=== PATIENT | female | born 1950 | race Caucasian/White ===

== ENCOUNTER 2017-04-20 20:37 | Inpatient (IN) | payer OTHER ==
[~2017-04-20] VITALS: Ht 167.6 cm; Wt 84.9 kg
[2017-04-20 21:24] LABS: HEMATOCRIT 36.2 % (37-47); MEAN CORPUSCULAR HEMOGLOBIN 32.1 pg (25-34); MEAN CORPUSCULAR HGB CONC 35.6 g/dl (32-36); MEAN PLATELET VOLUME 10.3 fL (7.4-10.4); PLATELET COUNT 379 K/uL (130-400); RED BLOOD COUNT 4.02 M/uL (4.2-5.4)
--- NOTE | 2017-04-20 21:25 | DIAGNOSTIC IMAGING REPORT ---
SINGLE VIEW CHEST CLINICAL HISTORY: Atypical chest pain. FINDINGS: An AP, portable, upright chest radiograph is obtained. No prior studies are available for comparison at the time of dictation. The examination is degraded by portable technique and patient rotation. The cardiomediastinal silhouette is unremarkable. The lungs and pleural spaces are clear. No pneumothorax is seen. The skeletal structures are osteopenic. The bony thorax is grossly intact. IMPRESSION: No acute cardiopulmonary abnormality. Electronically signed by: Chele Mar M.D. 04/20/2017 9:24 PM Dictated Date/Time: 04/20/2017 9:23 PM
[2017-04-20 21:30] LABS: POINT OF CARE TROPONIN I < 0.030 ng/ml (0-0.045)
[2017-04-20 21:37] LABS: PARTIAL THROMBOPLASTIN RATIO 0.9; PROTHROMBIN TIME (PATIENT) 11.1 SECONDS (9.0-12.0)
[2017-04-20 21:39] LABS: BUN/CREATININE RATIO 24.8 (10-20); CALCIUM 9.3 mg/dl (8.5-10.1); CREATININE 0.88 mg/dl (0.60-1.20); POTASSIUM 3.5 mmol/L (3.5-5.1)
[2017-04-20 21:44] LABS: ALB/GLOB RATIO 1.3 (0.9-2); CKMB/CK RATIO 1.9 (0-3.0)
[2017-04-20] MEDS ORDERED: NITROGLYCERIN OINT 2% 1GM PACKET EXT STA (22:13)
[2017-04-20] MEDS ORDERED: NITROGLYCERIN OINT 2% 1GM PACKET ONE (22:28)
[2017-04-20] MEDS ORDERED: LOSA1TAB PO (22:33)
[2017-04-20] MEDS ORDERED: ASPI81TA28 PO (22:33)
[2017-04-20] MEDS ORDERED: LEVO137T3 PO (22:33)
[2017-04-20] MEDS ORDERED: NITROGLYCERIN OINT 2% 1GM PACKET EXT SCH (23:00)
[2017-04-20] MEDS ORDERED: NITROGLYCERIN 0.4 MG SL PER TAB CHARGE SL PRN (23:00)
[2017-04-20] MEDS ORDERED: ACETAMINOPHEN 325 MG TAB PO PRN (23:00)
[2017-04-20] MEDS ORDERED: MoRPHine SULFATE 2 MG/ML CARP IV PRN (23:00)
--- NOTE | 2017-04-20 23:17 | History and Physical ---
History & Physical Date & Time of Service: Apr 20, 2017 at 23:02 Chief Complaint: Chest Pain Primary Care Physician: No Doctor, Assigned History of Present Illness Source: patient, family Kiara is a 66 yo F with fibromuscular dysplasia, hypertension, and angina who presents with severe chest pain 3 hours ago. She reports this has been occurring frequently over the last two months, but was at its worst today. Around 8pm, she was shopping in [employer], and once she got to check out, she developed sudden onset, left sided chest pain. She reports she felt she had to sit down, and became very limp in her daughters arms. She took a nitro tablet and it did not do anything, so took another one, and then her daughter called the ambulance. She does not remember much else. Since receiving nitroglycerin, she has not had further chest pain. She reports she has had recurrent angina over the last two months. She reports it usually occurs with activity and occasionally radiates to the jaw, but resolves with nitro. It most recently occurred yesterday when she was shopping in [place] with a friend, who took her to the ED there. She was told her nitro had / would not work since it was out of the refrigerator for too long, and once she had nitro there she felt fine and was discharged home. She has recently switched to [facility] insurance and lives in [place], where her PCP does not take her insurance, so she has not seen any physicians. She reports she had a heart cath years ago, but has not had any stents placed. Her Blasting Coal Miner used to be named Dr Whatley. She also had renal artery issues due to fibromuscular dysplasia and reports she has abnormal cells in the renal artery which caused high blood pressure, but reports she did not have renal artery stenosis. She reports she has yearly ultrasounds of all her arteries, most recently last year, and this was normal. Past Medical/Surgical History PMHx: Fibromuscular dysplasia Angina Hypertension PSHx: None Family History Both parents had CAD, Father in his 50's from an [place] Social History Smoking Status: Former Smoker Alcohol Use: socially Drug Use: none Marital Status: Housing status: lives with family Occupational Status: retired Allergies Coded Allergies: No Known Allergies (Unverified , 04/20/17) Home Medications Scheduled Aspirin (Aspirin Ec), 81 MG PO DAILY Levothyroxine Sodium (Levothyroxine Sodium), 1 TAB PO DAILY Losartan Potassium (Cozaar), Unknown Dose PO DAILY Review of Systems A 10 point ROS was negative unless otherwise noted in HPI. Physical Exam Vital Signs Date Time Temp Pulse Resp B/P (MAP) Pulse Ox O2 Delivery O2 Flow Rate FiO2 04/20/17 22:37 73 23 84 04/20/17 22:22 67 13 96 04/20/17 22:07 60 12 95 04/20/17 22:05 64 18 129/65 94 Room Air 04/20/17 22:04 129/65 04/20/17 21:52 63 19 98 04/20/17 21:37 73 16 95 04/20/17 21:22 68 16 94 04/20/17 21:07 69 14 96 04/20/17 20:52 71 14 97 04/20/17 20:47 72 04/20/17 20:44 123/76 04/20/17 20:43 93 Room Air 04/20/17 20:43 36.8 72 20 123/76 93 Room Air 04/20/17 20:43 96 Room Air General Appearance: WD/WN, no apparent distress Head: normocephalic, atraumatic Eyes: normal inspection, PERRL ENT: hearing grossly normal Neck: supple, no JVD Respiratory/Chest: lungs clear, normal breath sounds, no respiratory distress Cardiovascular: regular rate, rhythm, no murmur, normal peripheral pulses Abdomen/GI: normal bowel sounds, non tender, soft Back: no CVA tenderness Extremities/Musculoskelatal: no calf tenderness, no pedal edema Neurologic/Psych: alert, normal mood/affect, normal reflexes, oriented x 3 Skin: no rash Diagnostics Laboratory Results Results Past 24 Hours Test 04/20/17 20:32 04/20/17 21:11 Range/Units White Blood Count 6.40 4.8-10.8 K/uL Red Blood Count 4.02 4.2-5.4 M/uL Hemoglobin 12.9 12.0-16.0 g/dL Hematocrit 36.2 37-47 % Mean Corpuscular Volume 90.0 80-100 fL Mean Corpuscular Hemoglobin 32.1 25-34 pg Mean Corpuscular Hemoglobin Concent 35.6 32-36 g/dl RDW Standard Deviation 41.6 36.4-46.3 fL RDW Coefficient of Variation 12.7 11.5-14.5 % Platelet Count 379 130-400 K/uL Mean Platelet Volume 10.3 7.4-10.4 fL Prothrombin Time 11.1 9.0-12.0 SECONDS Prothromb Time International Ratio 1.0 0.9-1.1 Activated Partial Thromboplast Time 24.5 21.0-31.0 SECONDS Partial Thromboplastin Ratio 0.9 Sodium Level 139 136-145 mmol/L Potassium Level 3.5 3.5-5.1 mmol/L Chloride Level 106 98-107 mmol/L Carbon Dioxide Level 22 21-32 mmol/L Anion Gap 11.0 3-11 mmol/L Blood Urea Nitrogen 22 7-18 mg/dl Creatinine 0.88 0.60-1.20 mg/dl Est Creatinine Clear Calc Drug Dose 70.8 ml/min Estimated GFR () 80.5 Estimated GFR (Non- 69.4 BUN/Creatinine Ratio 24.8 10-20 Random Glucose 110 70-99 mg/dl Calcium Level 9.3 8.5-10.1 mg/dl Total Bilirubin 0.4 0.2-1 mg/dl Aspartate Amino Transf (AST/SGOT) 14 15-37 U/L Alanine Aminotransferase (ALT/SGPT) 23 12-78 U/L Alkaline Phosphatase 97 45-117 U/L Total Creatine Kinase 98 26-192 U/L Creatine Kinase MB 1.9 0.5-3.6 ng/ml Creatine Kinase MB Ratio 1.9 0-3.0 Total Protein 7.0 6.4-8.2 gm/dl Albumin 3.9 3.4-5.0 gm/dl Globulin 3.1 2.5-4.0 gm/dl Albumin/Globulin Ratio 1.3 0.9-2 Bedside D-Dimer 385 0-450 ng/mlFEU Bedside Troponin I < 0.030 0-0.045 ng/ml Diagnostic Radiology SINGLE VIEW CHEST CLINICAL HISTORY: Atypical chest pain. FINDINGS: An AP, portable, upright chest radiograph is obtained. No prior studies are available for comparison at the time of dictation. The examination is degraded by portable technique and patient rotation. The cardiomediastinal silhouette is unremarkable. The lungs and pleural spaces are clear. No pneumothorax is seen. The skeletal structures are osteopenic. The bony thorax is grossly intact. IMPRESSION: No acute cardiopulmonary abnormality. EKG NSR, No ST elevations Impression Assessment and Plan 66 yo F with chest pain, but negative EKG and negative troponin - could be spastic / vasospasm, she reports a normal cath from Cardiology Chest pain - Monitor on telemetry - Trend cardiac enzymes - Continue aspirin - Cardiology consult - Echo in AM HTN - Continue Losartan Fibromuscular Dysplasia - Continue aspirin DC planning CODE STATUS: FULL VTE: Heparin DISPO: TELE Resident Physician Supervision Note: Pt seen/examined independently. I discussed the case with the resident and agree with the findings and plan as documented in the note. Any exceptions or clarifications are listed here: 66 y/o F Hx fibrodysplasia and coronary vasospastic disease presenting with severe CP leading to near-syncope and diaphoresis. It is not uncommon for her to have CP however she states that her pain was far worse than usual. She apparently had a clean cardiac cath 5 years ago. OE AAO x 3 S1,2 R CTAB NT. ND, BS+ No CCE P: NTG patch applied -trend troponins - consult [facility] cardiology as she was previously following with Dr Dawson EKG/enzymes thus far do not support ischemia Above discussed with pt and resident Documented By: Marc Jarrell Level of Care Telemetry Resuscitation Status FULL RESUSCITATION VTE Prophylaxis Given or contraindicated: Other Anticoagulation Resident Tracking Resident Involvement: Resident Care Provided Care Provided: Adult Hospital Medicine
[2017-04-21] VITALS (7 sets, daily range): BP systolic 99–139; BP diastolic 59–78; PULSE 55–83; TEMP 36.3–36.9; O2SAT 94–97; Ht 167.6 cm; Wt 84.9 kg
[2017-04-21] MEDS ORDERED: NITROGLYCERIN 0.4 MG SL PER TAB CHARGE SL PRN (00:15)
[2017-04-21] MEDS ORDERED: MoRPHine SULFATE 2 MG/ML CARP IV PRN (00:15)
--- NOTE | 2017-04-21 01:24 | EMERGENCY ROOM VISIT NOTE ---
History Report prepared by Jeff: Destiney Ford Under the Supervision of: Dr. Jairo Hurt M.D. First contact with patient: 21:17 Chief Complaint: CHEST PAIN Stated Complaint: CHEST PAIN Nursing Triage Summary: Was shopping with daughter, had acute onset of chest pain at 2000 hours, felt like pressure under left breast, got worse, took 3 nitro and eventually got relief upon arrival of EMS. EMS did not give further medication. Daughter states it seemed like patient was "seizing" when receiving nitro, stating eyes open but wasn't really looking at anything. EMS reports pt was diaphoretic upon arrival and dried up en route. Two road trips to [place] and back in past month. Has had episodes recently like she feels like she can't get enough air. Also took 2 nitro yesterday for the same chest pains. Pt did not take ASA or given ASA by EMS en route, did take a 81 mg ASA this morning. History of Present Illness The patient is a 66 year old female who presents to the Emergency Room with complaints of persistent chest pain starting 1999 today. She presents to the ED by EMS. Today at 1999 she started having pain in her left upper chest which radiated to her left rib cage. She describes it as being like a vice mat repairer. Her current chest pain is worse than her previous episodes. She took 3 nitro which somewhat improved her pain, but not completely. She reports diaphoresis. She has had dyspnea on exertion and fatigue for the past several days. She denies any abdominal pain. The patient has had several episodes of chest pain in the past month. 2-3 weeks ago she had some chest pain which resolved with nitro. Yesterday, she had another episode accompanied by diaphoresis, fatigue, and headache. She took nitro which resolved her pain. She went on a road trip to [place] 1 week ago. She has a family history of CO. Her father had an CO at age 44 and her mother in her 60s. The patient is on baby aspirin. She had a cardiac catheterization around 5 years ago which was negative. Source of History: patient Onset: 1999 Position: chest Quality: other (vice mat repairer) Timing: other (persistent) Modifying Factors (Relieving): other (nitro) Associated Symptoms: + diaphoresis, + fatigue, No abdominal pain Note: Pt reports dyspnea on exertion. Review of Systems See HPI for pertinent positives & negatives. A total of 10 systems reviewed and were otherwise negative. Past Medical & Surgical Medical Problems: (1) Chest pain (2) Unstable angina Family History Heart attack Social History Smoking Status: Former Smoker Marital Status: Occupation Status: unemployed Current/Historical Medications Scheduled Amlodipine (Norvasc), 2.5 MG PO DAILY Aspirin (Aspirin Ec), 81 MG PO DAILY Levothyroxine Sodium (Levothyroxine Sodium), 1 TAB PO DAILY Scheduled PRN Nitroglycerin (Nitrostat), 0.4 MG SL q5min PRN for Chest Pain Allergies Coded Allergies: No Known Allergies (Unverified , 04/20/17) Physical Exam Vital Signs Date Time Temp Pulse Resp B/P (MAP) Pulse Ox O2 Delivery O2 Flow Rate FiO2 04/20/17 22:37 73 23 84 04/20/17 22:22 67 13 96 04/20/17 22:07 60 12 95 04/20/17 22:05 64 18 129/65 94 Room Air 04/20/17 22:04 129/65 04/20/17 21:52 63 19 98 04/20/17 21:37 73 16 95 04/20/17 21:22 68 16 94 04/20/17 21:07 69 14 96 04/20/17 20:52 71 14 97 04/20/17 20:47 72 04/20/17 20:44 123/76 04/20/17 20:43 93 Room Air 04/20/17 20:43 36.8 72 20 123/76 93 Room Air 04/20/17 20:43 96 Room Air Physical Exam GENERAL: Patient is a healthy-appearing well-nourished female HEAD: Normocephalic atraumatic EYES: Ocular movements intact pupils equal and react to light OROPHARYNX mucous membranes are moist no exudates present no erythema or edema present NECK: Supple no nuchal rigidity CHEST: Good equal expansion LUNGS: Clear and equal to auscultation CARDIAC: Normal S1 and S2 ABDOMEN: Soft nontender no guarding BACK: No CVA tenderness EXTREMITIES: No pain upon palpation normal muscle strength in all groups no clubbing cyanosis or edema NEURO: Patient is following commands and answering questions appropriately. Alert and oriented x3 Cranial Nerves 2-12 grossly intact Medical Decision & Procedures ER Provider Diagnostic Interpretation: X-ray results as stated below per interpretation by me and the radiologist: SINGLE VIEW CHEST CLINICAL HISTORY: Atypical chest pain. FINDINGS: An AP, portable, upright chest radiograph is obtained. No prior studies are available for comparison at the time of dictation. The examination is degraded by portable technique and patient rotation. The cardiomediastinal silhouette is unremarkable. The lungs and pleural spaces are clear. No pneumothorax is seen. The skeletal structures are osteopenic. The bony thorax is grossly intact. IMPRESSION: No acute cardiopulmonary abnormality. Electronically signed by: Chele Mar M.D. 04/20/2017 9:24 PM Dictated Date/Time: 04/20/2017 9:23 PM Laboratory Results Test 04/20/17 20:32 04/20/17 21:11 Total Creatine Kinase 98 U/L (26-192) Creatine Kinase MB 1.9 ng/ml (0.5-3.6) Creatine Kinase MB Ratio 1.9 (0-3.0) Bedside D-Dimer 385 ng/mlFEU (0-450) Bedside Troponin I < 0.030 ng/ml (0-0.045) Labs reviewed by ED physician. Medications Administered Medications (Trade) Dose Ordered Sig/Marlyn Route Start Time Stop Time Status Last Admin Dose Admin Nitroglycerin (Nitroglycerin 2% Oint) 1 inch NOW STAT EXT 04/20/17 22:13 04/20/17 22:15 DC 04/20/17 22:30 1 INCH ECG Indication: chest pain Rate (beats per minute): 70 Rhythm: normal sinus Findings: no acute ischemic change, no ectopy ED Course 2153: The student evaluated the patient at this time. We discussed findings, differentials, and treatment plan. 2218: Past medical records reviewed. The patient was evaluated in room C6. A complete history and physical examination was performed. 2213: Nitroglycerin 1 inch EXT. 2240: I discussed the patient's case with Dr. Jarrell, [facility] hospitalist service, he has agreed to evaluate the patient for further management and care. 2245: Upon reexamination the patient is resting comfortably. I discussed results and treatment plan with the patient. She verbalizes agreement and understanding. The patient will be evaluated for further management. Medical Decision Prior records/ancillary studies reviewed. Triage Nursing notes reviewed. Additional history obtained from family. The patient's history was concerning for chest pain. Differential diagnosis: Etiologies such as cardiac ischemia, aortic dissection, pulmonary embolism, pneumonia, pneumothorax, musculoskeletal, infections, pericarditis, myocarditis , esophageal rupture, gastrointestinal, as well as others were entertained. Medication Reconciliation: I attest that I have personally reviewed the patient' s current medication list Blood Pressure Screening: Patient was found to have normal blood pressure on screening and does not require follow up. This is a 66-year-old female who presents emergency department complaining of chest pain. The patient has had increasing amounts of angina for the past month has had increasing amounts of nitroglycerin to take the pain away. Tonight the patient took 3 nitros with no relief of her pain. She was placed on Nitropaste in the emergency department which took the pain away. I did discuss the case with the hospitalist service who agreed to admit the patient. Patient family were in agreement with the treatment plan. Consults Time Called: [phone] Consulting Physician: Dr. Jarrell [facility] hospitalist service Returned Call: [phone] I discussed the patient's case with him, he has agreed to evaluate the patient for further management and care. Impression Primary Impression: Precordial chest pain Scribe Attestation The scribe's documentation has been prepared under my direction and personally reviewed by me in its entirety. I confirm that the note above accurately reflects all work, treatment, procedures, and medical decision making performed by me. Departure Information Dispostion Being Evaluated By Hospitalist Prescriptions Nitroglycerin (Nitrostat) 0.4 Mg/1 Tab Subl 0.4 MG SL q5min Y for Chest Pain, #1 BTL 0 Refills max 3 tablets in 15 minutes Prov: Jass Castle MD 04/21/17 Amlodipine (Norvasc) 2.5 Mg Tab 2.5 MG PO DAILY, #30 TAB 5 Refills Prov: Jass Castle MD 04/21/17 Referrals No Doctor, Assigned (PCP) Patient Instructions My [facility]
[2017-04-21] MEDS: ACETAMINOPHEN 325 MG TAB PO PRN ×2 (05:37→11:23)
[2017-04-21] MEDS: LEVOTHYROXINE 137 MCG TAB PO SCH (05:37)
[2017-04-21] MEDS: NITROGLYCERIN OINT 2% 1GM PACKET EXT SCH ×3 (05:37→18:00)
[2017-04-21 07:21] LABS: BASO % 0.4 %; BASO ABS # 0.02 K/uL (0-0.2); COMPLETE YES; EOS % 3.1 %; HEMATOCRIT 35.8 % (37-47); IG% 0.2 %; LYMPH % 34.7 %; MEAN CELL VOLUME 91.8 fL (80-100); MEAN CORPUSCULAR HEMOGLOBIN 31.8 pg (25-34); MEAN CORPUSCULAR HGB CONC 34.6 g/dl (32-36); MEAN PLATELET VOLUME 10.5 fL (7.4-10.4); NEUT % 52.6 %; PLATELET COUNT 329 K/uL (130-400)
[2017-04-21 07:51] LABS: ALT/SGPT 22 U/L (12-78); BLOOD UREA NITROGEN 18 mg/dl (7-18); BUN/CREATININE RATIO 27.1 (10-20); CALCIUM 8.9 mg/dl (8.5-10.1); CARBON DIOXIDE 24 mmol/L (21-32); CHLORIDE 107 mmol/L (98-107); CHOLESTEROL 219 mg/dl (0-200); CREATININE 0.65 mg/dl (0.60-1.20); GLUCOSE 88 mg/dl (70-99); POTASSIUM 3.6 mmol/L (3.5-5.1); SODIUM 140 mmol/L (136-145); TRIGLYCERIDES 79 mg/dl (0-150); VERY LOW DENSITY LIPOPROT CALC 16 mg/dl
[2017-04-21 07:56] LABS: ALB/GLOB RATIO 1.3 (0.9-2); ALKALINE PHOSPHATASE 90 U/L (45-117); AST/SGOT 14 U/L (15-37); CHOLESTEROL/HDL RATIO 2.9; HDL CHOLESTEROL 76 mg/dl; LDL CHOLESTEROL CALCULATED 127 mg/dl
[2017-04-21] MEDS: ASPIRIN 81 MG ECTAB PO SCH (08:08)
[2017-04-21 08:52] LABS: INR 1.1 (0.9-1.1); PROTHROMBIN TIME (PATIENT) 11.4 SECONDS (9.0-12.0)
[2017-04-21] MEDS ORDERED: LOSARTAN POTASSIUM 25 MG TAB PO SCH (09:00)
--- NOTE | 2017-04-21 11:33 | Cardiology Consultation ---
Cardiology Consultation Date of Consultation: Apr 21, 2017. Requesting Physician: Eugenie Kate Attending Physician: Gopi kelly Reason for Consultation: CP and angina Pt evaluation today including: conversation w/ patient, chart review, lab review, review of studies, conversation w/ senior clinical consultant History of Present Illness CP and Chest pressure worse over last couple months. The patient carries a diagnosis of basal spastic angina. She describes over the last couple of months increased frequency of her symptoms. They do not appear to occur with activity. Yesterday she was walking in [place] and had an episode of angina. She describes it as central chest pressure with this episode slightly taking her breath away. She took a sublingual nitroglycerin and became lightheaded, dizzy, weak, and had tunnel vision. At that point she had artery had a second sublingual nitroglycerin and then her daughter gave her a third sublingual nitroglycerin. She subsequently became more lightheaded dizzy and nearly presyncopal. She did not have any palpitations or feeling her heart racing prior to the episode. She is able to walk on the flat without significant angina. She she lives on one floor and does not climb stairs. She is able to carry the laundry and groceries without any anginal symptoms Past Medical/Surgical History 1. Vasospastic angina 2. Fibromuscular dysplasia status post percutaneous angioplasty of the right renal artery September 2013 3. History of cardiac catheterization September 2013 with minimal epicardial coronary artery disease 4. Hypertension Family History Heart attack Social History Smoking Status: Former Smoker History of Alcohol Use: Yes Review of Systems Constitutional: No see HPI, No fever, No chills, No sweats, No weight loss, No weakness, No fatigue, No problem reported Respiratory: No see HPI, No cough, No sputum, No wheezing, No shortness of breath, No dyspnea on exertion, No dyspnea at rest, No hemoptysis, No problem reported Cardiac: + see HPI, + chest pain, No edema, No palpitations Abdomen: No see HPI, No pain, No nausea, No vomiting, No diarrhea, No constipation, No GI bleeding, No problem reported Skin: No see HPI, No rash, No itch, No new/changing skin lesions, No color change, No bleeding, No problem reported All Other Systems: Reviewed and Negative Allergies Coded Allergies: No Known Allergies (Unverified , 04/20/17) Medications Current Inpatient Medications Medications (Trade) Dose Ordered Sig/Marlyn Route Start Time Stop Time Status Last Admin Dose Admin Aspirin (Ecotrin Tab) 81 mg DAILY PO 04/21/17 09:00 05/21/17 08:59 04/21/17 08:08 81 MG Levothyroxine Sodium (Synthroid Tab) 137 mcg DAILYBB PO 04/21/17 06:00 05/21/17 05:59 04/21/17 05:37 137 MCG Losartan Potassium (coZAAR TAB) 25 mg DAILY PO 04/21/17 09:00 05/21/17 08:59 04/21/17 08:08 25 MG Morphine Sulfate (MoRPHine SULFATE INJ) 2 mg Q30M PRN IV 04/21/17 00:15 05/05/17 00:14 Acetaminophen (Tylenol Tab) 650 mg Q4H PRN PO 04/21/17 00:15 05/21/17 00:14 04/21/17 05:37 650 MG Nitroglycerin (Nitrostat Tab) 0.4 mg UD PRN SL 04/21/17 00:15 05/21/17 00:14 Nitroglycerin (Nitroglycerin 2% Oint) 1 inch Q6 EXT 04/21/17 06:00 05/21/17 05:59 04/21/17 05:37 1 INCH Physical Exam Vital Signs Past 12 Hours Date Time Temp Pulse Resp B/P (MAP) Pulse Ox O2 Delivery O2 Flow Rate FiO2 04/21/17 08:17 36.8 61 20 107/59 (75) 94 Room Air 04/21/17 08:00 Room Air 04/21/17 04:00 Room Air 04/21/17 03:42 36.8 69 16 107/70 (82) 95 Room Air 04/21/17 00:43 36.5 83 16 139/77 97 Room Air 04/20/17 23:57 67 18 111/58 96 Room Air Constitutional: General Apperance: heathly-appearing Level of Distress: NAD Lungs: Respiratory effort: no dyspnea Auscultation: breath sounds normal, no wheezing, no rales/crackles, no rhonchi Cardiovascular: Heart Auscultation: RRR, no murmurs, no rubs, no gallops Peripheral Pulses: Carotid Pulse: normal on the left, normal on the right Abdomen: Bowel Sounds: normal Inspection & Palpation: soft, non-distended, no tenderness, guarding & rebound, pertinent finding (no abdominal bruits) Extremities: no edema Data Laboratory Results: Last 24 Hours Test 04/20/17 20:32 04/20/17 21:11 04/21/17 05:28 04/21/17 11:17 White Blood Count 6.40 K/uL 4.90 K/uL Red Blood Count 4.02 M/uL 3.90 M/uL Hemoglobin 12.9 g/dL 12.4 g/dL Hematocrit 36.2 % 35.8 % Mean Corpuscular Volume 90.0 fL 91.8 fL Mean Corpuscular Hemoglobin 32.1 pg 31.8 pg Mean Corpuscular Hemoglobin Concent 35.6 g/dl 34.6 g/dl RDW Standard Deviation 41.6 fL 43.3 fL RDW Coefficient of Variation 12.7 % 12.9 % Platelet Count 379 K/uL 329 K/uL Mean Platelet Volume 10.3 fL 10.5 fL Prothrombin Time 11.1 SECONDS 11.4 SECONDS Prothromb Time International Ratio 1.0 1.1 Activated Partial Thromboplast Time 24.5 SECONDS Partial Thromboplastin Ratio 0.9 Sodium Level 139 mmol/L 140 mmol/L Potassium Level 3.5 mmol/L 3.6 mmol/L Chloride Level 106 mmol/L 107 mmol/L Carbon Dioxide Level 22 mmol/L 24 mmol/L Anion Gap 11.0 mmol/L 9.0 mmol/L Blood Urea Nitrogen 22 mg/dl 18 mg/dl Creatinine 0.88 mg/dl 0.65 mg/dl Est Creatinine Clear Calc Drug Dose 70.8 ml/min 95.8 ml/min Estimated GFR () 80.5 108.7 Estimated GFR (Non- 69.4 93.8 BUN/Creatinine Ratio 24.8 27.1 Random Glucose 110 mg/dl 88 mg/dl Calcium Level 9.3 mg/dl 8.9 mg/dl Total Bilirubin 0.4 mg/dl 0.6 mg/dl Aspartate Amino Transf (AST/SGOT) 14 U/L 14 U/L Alanine Aminotransferase (ALT/SGPT) 23 U/L 22 U/L Alkaline Phosphatase 97 U/L 90 U/L Total Creatine Kinase 98 U/L Creatine Kinase MB 1.9 ng/ml Creatine Kinase MB Ratio 1.9 Total Protein 7.0 gm/dl 6.5 gm/dl Albumin 3.9 gm/dl 3.7 gm/dl Globulin 3.1 gm/dl 2.8 gm/dl Albumin/Globulin Ratio 1.3 1.3 Bedside D-Dimer 385 ng/mlFEU Bedside Troponin I < 0.030 ng/ml Neutrophils (%) (Auto) 52.6 % Lymphocytes (%) (Auto) 34.7 % Monocytes (%) (Auto) 9.0 % Eosinophils (%) (Auto) 3.1 % Basophils (%) (Auto) 0.4 % Neutrophils # (Auto) 2.58 K/uL Lymphocytes # (Auto) 1.70 K/uL Monocytes # (Auto) 0.44 K/uL Eosinophils # (Auto) 0.15 K/uL Basophils # (Auto) 0.02 K/uL Immature Granulocyte % (Auto) 0.2 % Immature Granulocyte # (Auto) 0.01 K/uL Troponin I < 0.015 ng/ml Triglycerides Level 79 mg/dl Cholesterol Level 219 mg/dl HDL Cholesterol 76 mg/dl LDL Cholesterol, Calculated 127 mg/dl VLDL Cholesterol, Calculated 16 mg/dl Cholesterol/HDL Ratio 2.9 Hepatitis C Antibody Screen NEG Imaging: nml cxr EKG: Normal sinus rhythm very mild nonspecific T wave changes Assessment & Plan 1. CP c/w Vasospastic angina 2. Fibromuscular dysplasia status post percutaneous angioplasty of the right renal artery September 2013 3. History of cardiac catheterization September 2013 with minimal epicardial coronary artery disease 4. Hypertension We were able to review her [facility] medical records. In September 2013 she underwent a cardiac catheterization with minimal epicardial coronary artery disease. At that time she carried a diagnosis of microvascular angina. Her symptoms are similar to her prior episodes although slightly more progressive in the last couple of months. Her EKG is relatively normal. Her troponins are negative. In addition, in 2012 at the time of the catheterization she underwent percutaneous angioplasty of her right renal artery secondary to fibromuscular dysplasia. She has had yearly renal ultrasounds and described her last ultrasound within the last year as being normal. If her third troponin and her echocardiogram are normal I believe she can be discharged home. 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 If she has lightheadedness or dizziness I would stop her losartan. I would avoid sublingual nitroglycerin as her episode yesterday was likely related to vasodilatation leading to a drop in her blood pressure with subsequent presyncope. She will need long-term cardiovascular follow-up. If the [facility] system does not except [facility] insurance, then we'll arrange for her to see one of the [facility] cardiologists in [place].
--- NOTE | 2017-04-21 13:20 | ECHOCARDIOGRAM REPORT ---
*NOTICE TO RECEIVING CONSTITUTION PARTY AGENCY This information is strictly Confidential and protected under [place] law. [place] law prohibits you from making any further disclosure of this information unless further disclosure is expressly permitted by the written consent of the person to whom it pertains or is authorized by law. A general authorization for the release of medical or other information is not sufficient for this purpose. Hospital accepts no responsibility if the information is made available to any other person, INCLUDING THE PATIENT. Interpretation Summary * Name: DAWOOD MALONEY Study Date: 04/21/2017 12:13 PM BP: 107/59 mmHg * Patient Location: C.2T\S\S244\S\1 HR: 61 * : 1950 (M/d/yyyy) Gender: Female Height: 66 in * Age: 66 yrs Ethnicity: CA Weight: 186 lb * Ordering Physician: Gopi Garcia * Referring Physician: Self, Referred * Performed By: Ya Pitts RCS * * Reason For Study: Chest pain * BSA: 1.9 m2 * -- Conclusions -- * The left ventricle is normal in size. * There is normal left ventricular wall thickness. * Ejection Fraction = 65-70%. * Left ventricular systolic function is normal. * The left ventricular wall motion is normal. * The right ventricle is normal in size and function. * The right ventricular systolic function is normal as assessed by tricuspid annular plane systolic excursion (TAPSE) (normal >1.5 cm). * Normal size aortic root and ascending aorta. No evidence of dissection. * Grade I diastolic dysfunction, (abnormal relaxation pattern). Procedure Details * Left Ventricle The left ventricle is normal in size. There is normal left ventricular wall thickness. Ejection Fraction = 65-70%. Left ventricular systolic function is normal. The left ventricular wall motion is normal. * Right Ventricle The right ventricle is normal in size and function. The right ventricular systolic function is normal as assessed by tricuspid annular plane systolic excursion (TAPSE) (normal >1.5 cm). * Atria The left atrial size is normal. Right atrial size is normal. * Mitral Valve The mitral valve is grossly normal. There is trace mitral regurgitation. * Tricuspid Valve The tricuspid valve anatomy is normal. No tricuspid regurgitation. * Aortic Valve The aortic valve is trileaflet. * Pulmonic Valve The pulmonic valve is not well seen, but is grossly normal. Mild pulmonic valvular regurgitation. * Great Vessels Normal size aortic root and ascending aorta. No evidence of dissection. * Pericardium/Pleural There is no pericardial effusion. * Left Ventricular Diastolic Function Grade I diastolic dysfunction, (abnormal relaxation pattern). * * MMode 2D Measurements and Calculations * IVSd 1.2 cm * * LVIDd 4.3 cm * LVIDs 2.6 cm * LVPWd 1.2 cm * * IVS/LVPW 1.0 * FS 40.3 % * EDV(Teich) 83.2 ml * ESV(Teich) 23.9 ml * EF(Teich) 71.3 % * * EDV(cubed) 79.7 ml * ESV(cubed) 17.0 ml * EF(cubed) 78.7 % * * LV mass(C)d 180.1 grams * LV mass(C)dI 92.9 grams/m\S\2 * * SV(Teich) 59.3 ml * SI(Teich) 30.6 ml/m\S\2 * SV(cubed) 62.7 ml * SI(cubed) 32.3 ml/m\S\2 * * LVOT diam 1.9 cm * LVOT area 2.9 cm\S\2 * * EDV(MOD-sp4) 79.9 ml * ESV(MOD-sp4) 18.9 ml * EF(MOD-sp4) 76.4 % * * EDV(MOD-sp2) 63.3 ml * ESV(MOD-sp2) 20.4 ml * EF(MOD-sp2) 67.9 % * * SV(MOD-sp4) 61.0 ml * SI(MOD-sp4) 31.5 ml/m\S\2 * * SV(MOD-sp2) 43.0 ml * SI(MOD-sp2) 22.2 ml/m\S\2 * * * * Doppler Measurements and Calculations * MV E max alfredo 50.7 cm/sec * MV A max alfredo 88.4 cm/sec * * MV E/A 0.57 * * MV dec time 0.32 sec * * Ao V2 max 109.5 cm/sec * Ao max PG 4.8 mmHg * Ao max PG (full) 0.90 mmHg * ISAÍAS(V,A) 2.6 cm\S\2 * ISAÍAS(V,D) 2.6 cm\S\2 * * LV V1 max PG 3.9 mmHg * * LV V1 max 98.7 cm/sec * * TR max alfredo 240.8 cm/sec * * *
[2017-04-21] MEDS ORDERED: NTRSLP4 SL (15:28)
[2017-04-21] MEDS ORDERED: AMLO2.5T PO (15:28)
[2017-04-21] MEDS ORDERED: AMLODIPINE BESYLATE 5 MG TAB PO ONE (15:45)
--- NOTE | 2017-04-21 15:56 | Discharge Instructions ---
Discharge Instructions Date of Service Apr 21, 2017. Admission Reason for Admission: Chest Pain Discharge Discharge Diagnosis / Problem: Chest pain due to coronary artery spasm Discharge Goals Goal(s): Learn about illness, Diagnostic testing, Therapeutic intervention Activity Recommendations Activity Limitations: as noted below May Resume Sexual Activity: after follow-up appointment (with Dr. Garcia) Shower/Bathe: no limitations Driving or Machine Use: no limitations Until you see Dr. Garcia, [facility], please avoid the following - 1. lifting objects over 15 pounds 2. going to the gym 3. running/jogging 4. heavy investigative agent 5. heavy outdoor chores/yard work Light walks are fine . Instructions / Follow-Up Instructions / Follow-Up From Dr. Castle - 1. Chest pain - you had NO evidence of a heart attack while here. It is believed that your pain was due to CORONARY SPASM. This is when the coronary arteries constrict spontaneously leading to the chest pain. Your fibromuscular dysplasia likely is contributing to the coronary spasm. Please START amlodipine 2.5mg once daily to prevent these attacks. Prescription sent to [facility]. 2. Follow/check your blood pressure at home. Record them on paper, and show them to Dr. Garcia at the time of follow-up. Please STOP your losartan at this time. 3. Stay well-hydrated day-to-day at home. 4. Please follow-up with Dr. Garcia within 2 weeks. 5. We can set you up with a primary care doctor/family doctor. Our aids social worker can do this for you next week. 6. Nitroglycerin - * keep this bottle with you at all times * if you have to take 2 or more nitroglycerins for chest pain please inform Dr. Garcia's office right away or seek medical attention at any emergency room right away * new prescription of nitroglycerin sent to the [facility] for you 7. Your echocardiogram (heart ultrasound) was normal. 8. Renal artery stenosis - * your right renal artery has mild-moderate amount of stenosis * your left renal artery has trace-mild amount of stenosis * Dr. Garcia can follow this and refer you if necessary 9. Left lung nodule - * you have a small, 3mm nodule in the upper lobe of the left lung * you will need a repeat CT scan in 1 year to make sure the nodule is the same size or less * [facility] has a "lung nodule" program that can track this for you * we will make sure you are enrolled in the program * most lung nodules are benign 10. Your thyroid level was NORMAL. Please continue on your same dose of thyroid medication. 11. Return to [facility] if - * you have severe chest pain not responding to nitroglycerin * you have chest pain associated with shortness of breath, nausea, vomiting, arm or neck or jaw pain, extreme sweating, etc Current Hospital Diet Patient's current hospital diet: AHA Diet (Heart Healthy) Discharge Diet Recommended Diet: AHA Diet (Heart Healthy) Procedures Procedures Performed: echocardiogram showing normal heart function and normal heart valves Pending Studies Studies pending at discharge: no Laboratory Results Lipid Panel Test 04/21/17 05:28 Range/Units Triglycerides Level 79 0-150 mg/dl Cholesterol Level 219 H 0-200 mg/dl HDL Cholesterol 76 mg/dl Cholesterol/HDL Ratio 2.9 LDL Cholesterol, Calculated 127 mg/dl Medical Emergencies . Who to Call and When: Medical Emergencies: If at any time you feel your situation is an emergency, please call 911 immediately. . Non-Emergent Contact Non-Emergency issues call your: Precast Molder Call Non-Emergent contact if: your pain is not controlled, your pain is worsening, your pain is unusual for you, your pain is concerning you, you have any medication questions Any dizziness, lightheadedness, or if you have to use your nitroglycerin - please call Dr. Garcia's office. . . "Provider Documentation" section prepared by Jass Castle. . VTE Core Measure Inpt VTE Proph given/why not?: Other Anticoagulation
[2017-04-21] MEDS ORDERED: OPTIRAY 320 IV PRN (16:30)
--- NOTE | 2017-04-21 17:19 | DIAGNOSTIC IMAGING REPORT ---
CT ANGIOGRAM OF THE CHEST CLINICAL HISTORY: Atypical chest pain and shortness of breath COMPARISON STUDY: Chest x-ray dated 04/20/2017 TECHNIQUE: Following the IV administration of 91 mL of Optiray-320, CT angiogram of the thorax was performed from the thoracic inlet to the lung bases utilizing the pulmonary embolus protocol. Images are reviewed in the axial, sagittal, and coronal planes. IV contrast was administered without complication. MIP imaging was performed. CT DOSE: 481.66 mGy.cm FINDINGS: No pathologically enlarged axillary mediastinal or hilar lymph nodes were visualized. There was no evidence of thoracic aortic dilatation. There were no pulmonary artery filling defects to indicate acute pulmonary embolism. No pleural effusions are visualized. There are mild dependent atelectatic changes. There are no areas of parenchymal consolidation to indicate a pneumonia. There is a 3 mm solid left upper lobe pulmonary nodule as visualized in image #[id number]. IMPRESSION: 1. No CT evidence of acute pulmonary embolism 2. No evidence of focal pulmonary consolidation 3. 3 mm solid left upper lobe nodule. In a low risk patient, no follow-up is indicated. In a high risk patient, a 12 month follow-up is optional Please refer to below summary of Fleischner criteria recommendations for follow-up of incidental CT nodules (Antonino Spencer, Guidelines for management of small pulmonary nodules detected on CT scans: A statement from the Fleischner Society, Radiology 237: [phone].) SOLID NODULES Solitary nodule size: <6 mm * low risk patients: no follow-up needed * high risk patients: optional CT at 12 months Solitary nodule size: 6-8 mm * low risk patients: follow-up at 6-12 months, then consider further follow-up at 18-24 months * high risk patients: initial follow-up CT at 6-12 months and then at 18-24 months if no change Solitary nodule size: >8 mm * either low or high risk patients - consider follow-up CT at 3 months, and/or CT-PET, and/or biopsy Multiple nodules size: <6 mm * low risk patients: no routine follow-up * high risk patients: optional CT at 12 months Multiple nodules size: 6-8 mm * low risk patients: follow-up at 3-6 months, then consider further follow-up at 18-24 months * high risk patients: follow-up at 3-6 months, then at 18-24 months if no change Multiple nodules size: >8 mm * low risk patients: follow-up at 3-6 months, then consider further follow-up at 18-24 months * high risk patients: follow-up at 3-6 months, then at 18-24 months if no change Note: newly detected indeterminate nodule in persons 35 years of age or older. * low risk patients: minimal or absent history of smoking and/or other known risk factors * high risk patients: history of smoking or of other known risk factors (e.g. first degree relative with lung cancer, or exposure to asbestos, radon, uranium) * if a nodule up to 8 mm is partly solid or is ground glass further follow-up is required after 24 months to exclude possible slow growing adenocarcinoma (VIRI) SUBSOLID NODULES Solitary pure ground-glass nodule * nodule size <6 mm - no CT follow-up required * nodule size >=6 mm - follow-up CT at 6-12 months, then every 2 years until 5 years Solitary part-solid nodule * nodule size <6 mm - no CT follow-up required * nodule size >=6 mm - follow-up CT at 3-6 months. If unchanged, and solid component remains <6 mm, then annual follow-up for 5 years Multiple subsolid nodules * nodule size <6 mm - follow-up CT at 3-6 months, consider further follow-up at 2 and 4 years if stable * nodule size >=6 mm - follow-up CT at 3-6 months, subsequent management based on the most suspicious nodule(s) Electronically signed by: Melchor Raymond M.D. 04/21/2017 5:17 PM Dictated Date/Time: 04/21/2017 5:12 PM
[2017-04-21 17:31] LABS: THYROID STIMULATING HORMONE 0.349 uIu/ml (0.300-4.500)
--- NOTE | 2017-04-21 18:50 | Progress Note ---
Subjective Date of Service: Apr 21, 2017. Subjective Pt evaluation today including: conversation w/ patient, conversation w/ family (daughter, ), physical exam, chart review, lab review, review of studies , conversation w/ managed services sales consultant (cardiology), review of inpatient medication list Pain: no recurrent chest pain PO Intake: normal Voiding: no voiding problems tele normal overnight she overall feels well however, she continues to have brief episodes of dyspnea - usually at rest - along with excessive perspiring she denies reflux denies significant anxiety although she reports multiple stressors in her family right now the dyspnea has been occurring for about 1 week walked the hallways this afternoon and did fine w/o any limiting symptoms or dyspnea did mention that her family drove 20 hours to [place] about 3 weeks ago, stayed for 1 week, then drove back about 1 week later Problem List Medical Problems: (1) Precordial chest pain Status: Acute Review of Systems Constitutional: No fever Respiratory: No cough Cardiac: No chest pain, No orthopnea, No PND, No edema, No palpitations Abdomen: No pain, No nausea, No vomiting Objective Vital Signs Date Time Temp Pulse Resp B/P (MAP) Pulse Ox O2 Delivery O2 Flow Rate FiO2 04/21/17 16:01 36.3 55 20 95 Room Air 04/21/17 16:00 Room Air 04/21/17 12:00 Room Air 04/21/17 11:40 36.3 55 20 122/78 (93) 95 Room Air 04/21/17 08:17 36.8 61 20 107/59 (75) 94 Room Air 04/21/17 08:00 Room Air 04/21/17 04:00 Room Air 04/21/17 03:42 36.8 69 16 107/70 (82) 95 Room Air 04/21/17 00:43 36.5 83 16 139/77 97 Room Air 04/20/17 23:57 67 18 111/58 96 Room Air 04/20/17 22:37 73 23 84 04/20/17 22:22 67 13 96 04/20/17 22:07 60 12 95 04/20/17 22:05 64 18 129/65 94 Room Air 04/20/17 22:04 129/65 04/20/17 21:52 63 19 98 04/20/17 21:37 73 16 95 04/20/17 21:22 68 16 94 04/20/17 21:07 69 14 96 04/20/17 20:52 71 14 97 04/20/17 20:47 72 04/20/17 20:44 123/76 04/20/17 20:43 93 Room Air 04/20/17 20:43 36.8 72 20 123/76 93 Room Air 04/20/17 20:43 96 Room Air Physical Exam General Appearance: no apparent distress ENT: pharynx normal Neck: no JVD Respiratory/Chest: lungs clear, no respiratory distress, no accessory muscle use Cardiovascular: regular rate, rhythm, no gallop, no murmur Abdomen: normal bowel sounds, non tender, soft, no organomegaly Extremities: no pedal edema Neurologic/Psychiatric: alert, oriented x 3 Comments: chest - no reproducible chest wall pain Laboratory Results Last 24 Hours Test 04/20/17 20:32 04/20/17 21:11 04/21/17 05:28 04/21/17 11:31 White Blood Count 6.40 K/uL 4.90 K/uL Red Blood Count 4.02 M/uL 3.90 M/uL Hemoglobin 12.9 g/dL 12.4 g/dL Hematocrit 36.2 % 35.8 % Mean Corpuscular Volume 90.0 fL 91.8 fL Mean Corpuscular Hemoglobin 32.1 pg 31.8 pg Mean Corpuscular Hemoglobin Concent 35.6 g/dl 34.6 g/dl RDW Standard Deviation 41.6 fL 43.3 fL RDW Coefficient of Variation 12.7 % 12.9 % Platelet Count 379 K/uL 329 K/uL Mean Platelet Volume 10.3 fL 10.5 fL Prothrombin Time 11.1 SECONDS 11.4 SECONDS Prothromb Time International Ratio 1.0 1.1 Activated Partial Thromboplast Time 24.5 SECONDS Partial Thromboplastin Ratio 0.9 Sodium Level 139 mmol/L 140 mmol/L Potassium Level 3.5 mmol/L 3.6 mmol/L Chloride Level 106 mmol/L 107 mmol/L Carbon Dioxide Level 22 mmol/L 24 mmol/L Anion Gap 11.0 mmol/L 9.0 mmol/L Blood Urea Nitrogen 22 mg/dl 18 mg/dl Creatinine 0.88 mg/dl 0.65 mg/dl Est Creatinine Clear Calc Drug Dose 70.8 ml/min 95.8 ml/min Estimated GFR () 80.5 108.7 Estimated GFR (Non- 69.4 93.8 BUN/Creatinine Ratio 24.8 27.1 Random Glucose 110 mg/dl 88 mg/dl Calcium Level 9.3 mg/dl 8.9 mg/dl Total Bilirubin 0.4 mg/dl 0.6 mg/dl Aspartate Amino Transf (AST/SGOT) 14 U/L 14 U/L Alanine Aminotransferase (ALT/SGPT) 23 U/L 22 U/L Alkaline Phosphatase 97 U/L 90 U/L Total Creatine Kinase 98 U/L Creatine Kinase MB 1.9 ng/ml Creatine Kinase MB Ratio 1.9 Total Protein 7.0 gm/dl 6.5 gm/dl Albumin 3.9 gm/dl 3.7 gm/dl Globulin 3.1 gm/dl 2.8 gm/dl Albumin/Globulin Ratio 1.3 1.3 Bedside D-Dimer 385 ng/mlFEU Bedside Troponin I < 0.030 ng/ml Neutrophils (%) (Auto) 52.6 % Lymphocytes (%) (Auto) 34.7 % Monocytes (%) (Auto) 9.0 % Eosinophils (%) (Auto) 3.1 % Basophils (%) (Auto) 0.4 % Neutrophils # (Auto) 2.58 K/uL Lymphocytes # (Auto) 1.70 K/uL Monocytes # (Auto) 0.44 K/uL Eosinophils # (Auto) 0.15 K/uL Basophils # (Auto) 0.02 K/uL Immature Granulocyte % (Auto) 0.2 % Immature Granulocyte # (Auto) 0.01 K/uL Troponin I < 0.015 ng/ml < 0.015 ng/ml Triglycerides Level 79 mg/dl Cholesterol Level 219 mg/dl HDL Cholesterol 76 mg/dl LDL Cholesterol, Calculated 127 mg/dl VLDL Cholesterol, Calculated 16 mg/dl Cholesterol/HDL Ratio 2.9 Hepatitis C Antibody Screen NEG Test 04/21/17 16:45 Troponin I < 0.015 ng/ml Thyroid Stimulating Hormone (TSH) 0.349 uIu/ml Assessment and Plan 66yo female with: 1. chest pain - resolved. Serial troponins all negative. ECHO wnl. Seen by cardiology, Dr. Garcia. Symptoms felt to be c/w coronary vasospasm. I agree with that diagnosis. Starting amlodipine 2.5mg daily. Telemetry normal since admission. 2. dyspnea, episodes of diaphoresis, etc - just underwent significant travel to [place] by car. Elected to perform CTA chest to r/o PE -- CT negative for such. No other pulmonary findings except small nodule. I am unclear if these symptoms are from the coronary vasospasm, anxiety, or some other factor. 3. hypothyroidism - TSH normal; continue synthroid same dose. 4. fibromuscular dysplasia with h/o renal artery stenosis - will check renal artery doppler -- r/o recurrent renal artery stenosis. 5. mild hyperlipidemia - diet management for now. 6. HTN - hold losartan since amlodipine will be started. Stop nitroglycerin topically. 7. syncope - likely due to nitroglycerin use in the setting of mild volume depletion. Will continue to observe overnight. Discharge planning: home
[2017-04-22 03:09] VITALS: BP 107/56; PULSE 61; TEMP 36.6; O2SAT 97
[2017-04-22] MEDS: LEVOTHYROXINE 137 MCG TAB PO SCH (06:15)
[2017-04-22 07:14] LABS: HEMATOCRIT 36.9 % (37-47); MEAN CELL VOLUME 91.8 fL (80-100); MEAN CORPUSCULAR HEMOGLOBIN 32.3 pg (25-34); MEAN CORPUSCULAR HGB CONC 35.2 g/dl (32-36); MEAN PLATELET VOLUME 9.8 fL (7.4-10.4); PLATELET COUNT 328 K/uL (130-400); RED BLOOD COUNT 4.02 M/uL (4.2-5.4); WHITE BLOOD COUNT 4.84 K/uL (4.8-10.8)
[2017-04-22 07:44] VITALS: BP 115/67; PULSE 60; TEMP 36.6; O2SAT 97
[2017-04-22 07:46] LABS: BUN/CREATININE RATIO 29.2 (10-20); CALCIUM 9.1 mg/dl (8.5-10.1); CREATININE 0.68 mg/dl (0.60-1.20); POTASSIUM 3.9 mmol/L (3.5-5.1)
[2017-04-22 07:49] LABS: ALB/GLOB RATIO 1.2 (0.9-2)
[2017-04-22] MEDS: ASPIRIN 81 MG ECTAB PO SCH (08:00)
[2017-04-22] MEDS ORDERED: AMLODIPINE BESYLATE 5 MG TAB PO SCH (09:00)
--- NOTE | 2017-04-22 10:19 | Cardiology Follow-Up ---
Subjective General Date of Service: Apr 22, 2017. Pt evaluation today including: conversation w/ patient, chart review, lab review, review of studies, conversation w/ project consultant History of Present Illness The patient is a 66 year old female Allergies Coded Allergies: No Known Allergies (Unverified , 04/20/17) Social History Smoking Status: Former Smoker Hx Tobacco Use In Past Year?: No Hx Alcohol Use - Type And Amou: Yes Hx Substance Use - Type And Am: No Problem List Medical Problems: (1) Precordial chest pain Status: Acute Review of Systems Respiratory: No shortness of breath, No dyspnea at rest Cardiac: No chest pain, No edema, No palpitations Physical Exam Vital Signs Last Vital Signs Documentation Date Time Temp Pulse Resp B/P (MAP) Pulse Ox O2 Delivery O2 Flow Rate FiO2 04/22/17 08:00 Room Air 04/22/17 07:44 36.6 60 20 115/67 (83) 97 Physical Exam Constitutional: General Apperance: heathly-appearing Level of Distress: NAD Lungs: Respiratory effort: no dyspnea Auscultation: breath sounds normal, no wheezing, no rales/crackles, no rhonchi Cardiovascular: Heart Auscultation: RRR, no murmurs, no rubs, no gallops Peripheral Pulses: Carotid Pulse: normal on the left, normal on the right Abdomen: Bowel Sounds: normal Inspection & Palpation: soft, non-distended, no tenderness, guarding & rebound, pertinent finding (no abdominal bruits) Extremities: no edema Assessment and Plan Assessment and Plan 1. CP c/w Vasospastic angina 2. Fibromuscular dysplasia status post percutaneous angioplasty of the right renal artery September 2013 3. History of cardiac catheterization September 2013 with minimal epicardial coronary artery disease 4. Hypertension Echo normal EKG and Troponin normal after 4:[address] chest negative Tolerating amlodipine this am. No losartan. Ambulate to see how she feels. Taking big breath she describes is c/w a Sigh; no panting or inability to cath breath MARCELLA completed this am 236 cm/s peak across right renal artery. I think there is a significant anxiety component to her symptoms. [place] and it may help her psychologically to be closer to medical care If she continues to have sx's that are refractory to medical Tx, she will need recath. SL NTG x1 only, given orthostatic episode that led to admission She will need long-term cardiovascular follow-up. will arrange in the next 10 days as an outpt Laboratory Results Last 24 Hours Test 04/21/17 11:31 04/21/17 16:45 04/22/17 06:56 Troponin I < 0.015 ng/ml < 0.015 ng/ml Thyroid Stimulating Hormone (TSH) 0.349 uIu/ml White Blood Count 4.84 K/uL Red Blood Count 4.02 M/uL Hemoglobin 13.0 g/dL Hematocrit 36.9 % Mean Corpuscular Volume 91.8 fL Mean Corpuscular Hemoglobin 32.3 pg Mean Corpuscular Hemoglobin Concent 35.2 g/dl RDW Standard Deviation 43.1 fL RDW Coefficient of Variation 12.8 % Platelet Count 328 K/uL Mean Platelet Volume 9.8 fL Activated Partial Thromboplast Time 27.2 SECONDS Partial Thromboplastin Ratio 1.0 Sodium Level 140 mmol/L Potassium Level 3.9 mmol/L Chloride Level 107 mmol/L Carbon Dioxide Level 28 mmol/L Anion Gap 5.0 mmol/L Blood Urea Nitrogen 20 mg/dl Creatinine 0.68 mg/dl Est Creatinine Clear Calc Drug Dose 91.8 ml/min Estimated GFR () 107.1 Estimated GFR (Non- 92.4 BUN/Creatinine Ratio 29.2 Random Glucose 92 mg/dl Calcium Level 9.1 mg/dl Total Bilirubin 0.4 mg/dl Aspartate Amino Transf (AST/SGOT) 10 U/L Alanine Aminotransferase (ALT/SGPT) 23 U/L Alkaline Phosphatase 96 U/L Total Protein 6.8 gm/dl Albumin 3.7 gm/dl Globulin 3.1 gm/dl Albumin/Globulin Ratio 1.2
--- NOTE | 2017-04-22 11:52 | DIAGNOSTIC IMAGING REPORT ---
DOPPLER ULTRASOUND OF THE RENAL ARTERIES CLINICAL HISTORY: Renal artery stenosis. Fibromuscular dysplasia. COMPARISON STUDY: No priors. TECHNIQUE: Doppler sonography of the renal arteries was performed to assess renal artery stenosis. Images are reviewed in the transverse and longitudinal planes. FINDINGS: The kidneys demonstrate cortical atrophy and are without hydronephrosis. The right kidney measures 11.2 cm in length and the left kidney measures 11.4 cm in length. Small bilateral renal cysts measure up to 2.0 cm. On the right, intrarenal arterial resistive indices range from 0.44 to 0.62. Intrarenal arterial waveforms are normal with brisk upstrokes. The right renal arterial waveform is normal. There are elevated velocities identified within the mid to distal right renal artery which measure up to 239 cm/s. The proximal right renal artery was not well visualized. The right renal vein is patent. On the left, intrarenal arterial resistive indices range from 0.46 to 0.60. Intrarenal arterial waveforms are normal with brisk upstrokes. The left renal arterial waveform is normal. Mildly limited velocities are seen within the distal left renal artery and measure up to 187 cm/sec. The left renal vein is patent. The abdominal aorta is patent. Velocities within the abdominal aorta measure up to 60 cm/s. IMPRESSION: 1. The kidneys demonstrate cortical atrophy and are without hydronephrosis. 2. There are elevated velocities in the mid to distal right renal artery suggesting renal artery stenosis. 3. Borderline elevated velocities are suggested in the distal left renal artery. Some degree of stenosis is not excluded. Electronically signed by: Chele Mar M.D. 04/22/2017 11:51 AM Dictated Date/Time: 04/22/2017 11:47 AM
[2017-04-22 12:03] VITALS: BP 122/70; PULSE 70; TEMP 36.9; O2SAT 95
--- NOTE | 2017-04-23 05:51 | Discharge Summary ---
Discharge Summary Date of Service Apr 23, 2017. Discharge Summary Admission Date: Apr 20, 2017 at 23:20 Discharge Date: Apr 22, 2017 Discharge Disposition: Home Principal Diagnosis: chest pain 2nd to coronary artery vasospasm Problems/Secondary Diagnoses: 1. fibromuscular dysplasia 2. hypothyroidism 3. renal artery stenosis 4. ROSLYN lung nodule - 3mm 5. HTN 6. syncope likely due to nitroglycerin use Procedures: 1. echocardiogram: * -- Conclusions -- * The left ventricle is normal in size. * There is normal left ventricular wall thickness. * Ejection Fraction = 65-70%. * Left ventricular systolic function is normal. * The left ventricular wall motion is normal. * The right ventricle is normal in size and function. * The right ventricular systolic function is normal as assessed by tricuspid annular plane systolic excursion (TAPSE) (normal >1.5 cm). * Normal size aortic root and ascending aorta. No evidence of dissection. * Grade I diastolic dysfunction, (abnormal relaxation pattern). 2. renal artery dopplers: IMPRESSION: 1. The kidneys demonstrate cortical atrophy and are without hydronephrosis. 2. There are elevated velocities in the mid to distal right renal artery suggesting renal artery stenosis. 3. Borderline elevated velocities are suggested in the distal left renal artery. Some degree of stenosis is not excluded. 3. CTA chest: IMPRESSION: 1. No CT evidence of acute pulmonary embolism 2. No evidence of focal pulmonary consolidation 3. 3 mm solid left upper lobe nodule. In a low risk patient, no follow-up is indicated. In a high risk patient, a 12 month follow-up is optional Please refer to below summary of Fleischner criteria recommendations for follow-up of incidental CT nodules - Solitary nodule size: <6 mm * low risk patients: no follow-up needed * high risk patients: optional CT at 12 months Consultations: cardiology - Gopi Garcia, Medication Reconciliation New Medications: Amlodipine (Norvasc) 2.5 Mg Tab 2.5 MG PO DAILY, #30 TAB 5 Refills Nitroglycerin (Nitrostat) 0.4 Mg/1 Tab Subl 0.4 MG SL q5min PRN for Chest Pain, #1 BTL 0 Refills max 3 tablets in 15 minutes Continued Medications: Aspirin (Aspirin Ec) 81 Mg Tab 81 MG PO DAILY Levothyroxine Sodium (Levothyroxine Sodium) 137 Mcg Tab 1 TAB PO DAILY, TAB Discontinued Medications: Losartan Potassium (Cozaar) 25 Mg Tab Unknown Dose PO DAILY, TAB Referrals At Discharge Follow up Referrals: Healthcare Interpreter Referral - Within 2 Weeks with Gopi Garcia, DO Discharge Exam Physical Exam: General Appearance: WD/WN, no apparent distress ENT: pharynx normal Neck: no JVD Respiratory/Chest: lungs clear, no respiratory distress, no accessory muscle use Cardiovascular: regular rate, rhythm, no gallop, no JVD, no murmur, normal peripheral pulses Abdomen / GI: normal bowel sounds, non tender, soft, no organomegaly Extremities: no pedal edema Neurologic/Psychiatric: alert, oriented x 3 Hospital Course HISTORY OF PRESENT ILLNESS: Kiara is a 66yo female with fibromuscular dysplasia, hypertension, and angina who presents with severe chest pain 3 hours ago. She reports this has been occurring frequently over the last two months, but was at its worst today. Around 8pm, she was shopping in [place], and once she got to check out, she developed sudden onset, left sided chest pain. She reports she felt she had to sit down, and became very limp in her daughters arms. She took a nitro tablet and it did not do anything, so took another one, and then her daughter called the ambulance. She does not remember much else. Since receiving nitroglycerin, she has not had further chest pain. She reports she has had recurrent angina over the last two months. She reports it usually occurs with activity and occasionally radiates to the jaw, but resolves with nitro. It most recently occurred yesterday when she was shopping in [place] with a friend, who took her to the ED there. She was told her nitro had / would not work since it was out of the refrigerator for too long, and once she had nitro there she felt fine and was discharged home. In September 2013 she underwent a cardiac catheterization with minimal coronary artery disease. At that time she carried a diagnosis of microvascular angina. In addition, in 2012 at the time of the catheterization, she underwent percutaneous angioplasty of her right renal artery secondary to fibromuscular dysplasia. She has had yearly renal ultrasounds and described her last ultrasound within the last year as being normal. HOSPITAL COURSE: Following admission the patient had no further chest pain episodes. Telemetry, EKGs, serial troponins, and echocardiogram were all entirely normal. She was seen in consult by cardiology, Dr. Gopi Garcia, who felt her symptoms were consistent with coronary vasospasm. In her case her vasospasm is likely due to her fibromuscular dysplasia. She was initiated on amlodipine 2.5mg daily. Her brief syncope episode just prior to admission was felt to be due to nitroglycerin use in the setting of mild volume depletion. The patient also reported brief episodes of dyspnea associated with diaphoresis. Because she had just completed a round-trip car ride to [place] she underwent a CTA of the chest which was, fortunately, negative for pulmonary emboli. TSH was checked and found to be normal. It was unclear what the exact etiology of these spells was but anxiety and/or her coronary vasospasm were felt likely. With respect to her fibromuscular dysplasia causing renal artery stenosis she completed a renal artery doppler with results as noted above. She will follow-up with Dr. Garcia for this. Lastly, since amlodipine was started for her coronary vasospasm, she was asked to discontinue her losartan to prevent hypotension. As an incidental finding a 3mm solid nodule was found on CTA of the chest. She is a prior smoker and thus a follow-up CT chest is recommended in 1 year. Total Time Spent: Greater than 30 minutes This includes examination of the patient, discharge planning, medication reconciliation, and communication with other providers. Discharge Instructions Please refer to the electronic Patient Visit Report (Discharge Instructions) for additional information. Follow-Up see Dr. Gopi Garcia, [facility], within 1-2 weeks Additional Copies To Gopi Garcia, DO
== END 2017-04-22 12:45 | disposition home or self-care (01) | DRG 311 ==
LOC: EDBD 20:37 → C.EDC 20:39 → C.2T 23:20 → ENRESERV 23:36
PROVIDERS: ADMIT Internal Medicine; ATTEND Internal Medicine
DX: I20.1 Angina pectoris with documented spasm (principal); R55 Syncope and collapse; T46.3X5A Adverse effect of coronary vasodilators, initial encounter; E86.9 Volume depletion, unspecified; R06.00 Dyspnea, unspecified; R61 Generalized hyperhidrosis; F41.9 Anxiety disorder, unspecified; I77.3 Arterial fibromuscular dysplasia; I70.1 Atherosclerosis of renal artery; R91.1 Solitary pulmonary nodule; I10 Essential (primary) hypertension; E03.9 Hypothyroidism, unspecified; E78.5 Hyperlipidemia, unspecified; Z98.62 Peripheral vascular angioplasty status; Z87.891 Personal history of nicotine dependence; Z82.49 Family history of ischemic heart disease and other diseases of the circulatory system; Z79.82 Long term (current) use of aspirin; Z79.899 Other long term (current) drug therapy

== ENCOUNTER 2020-06-11 05:27 | Observation (INO) ==
--- NOTE | 2020-05-07 13:10 | PAT Medication Instructions ---
Medication Instructions Date of Service May 07, 2020 Home Medications Medication Instructions Recorded xdjdryj-kimxyhctnn-DEL-caffeine 30 1 cap PO Q6H PRN #30 cap 06/11/ mg-50 mg-325 mg-40 mg capsule dvoazbn-fhlzodibpr-PPV-caffeine 30 mg-50 mg-325 mg-40 mg capsule 1 cap PO Q6H PRN aspirin 81 mg tablet,delayed release 81 mg PO PM levothyroxine 100 mcg capsule 100 mcg PO QAM nitroglycerin 0.4 mg sublingual tablet 0.4 mg SL Q5M PRN multivitamin 1 tab PO PM amlodipine 10 mg PO PM ascorbic acid (vitamin C) [Vitamin C] 500 mg PO PM calcium polycarbophil [Fiber-Tabs] 1,250 mg PO QAM cyanocobalamin (vitamin B-12) 1,000 mcg PO 3XWK fluocinolone-hydroq.-tretinoin [Tri-Della] 1 appln TOP HS PRN potassium chloride [Klor-Con 10] 10 meq PO PM Continue as directed nitroglycerin 0.4 mg sublingual tablet 0.4 mg SL Q5M PRN (if needed) ASK your surgeon for instructions ojogqcx-xofcdgfkub-TMM-caffeine 30 mg-50 mg-325 mg-40 mg capsule 1 cap PO Q6H PRN STOP taking 24 hours before surgery fluocinolone-hydroq.-tretinoin [Tri-Della] 1 appln TOP HS PRN DO NOT take the morning of surgery calcium polycarbophil [Fiber-Tabs] 1,250 mg PO QAM cyanocobalamin (vitamin B-12) 1,000 mcg PO 3XWK Take morning of surgery With a small sip of water, OTHERWISE NOTHING TO EAT OR DRINK AFTER MIDNIGHT: levothyroxine 100 mcg capsule 100 mcg PO QAM Take evening before surgery aspirin 81 mg tablet,delayed release 81 mg PO PM multivitamin 1 tab PO PM amlodipine 10 mg PO PM ascorbic acid (vitamin C) [Vitamin C] 500 mg PO PM potassium chloride [Klor-Con 10] 10 meq PO PM Other Notes If you have any questions please call us at [phone] or [phone] or [phone] or [phone]
--- NOTE | 2020-05-10 12:06 | Anesthesiology Consultation ---
Date of Service May 10, 2020 Assessment & Plan (1) Encounter for pre-operative examination: - Cardiology office visit: 07/02/19: Losartan discontinued as patient's BP "is on the lower side and she continues to lose weight. It sounds like her Prinzmetal angina with amlodipine is well controlled.. From my standpoint, she is stable." F/U one year recommended. Per PAT assessment on 05/10: Travel screen- Traveled to [facility] for EGD 05/06 (patient states she does occasionally travel to [place] but will refrain from doing so close to [facility], patient was advised to not travel outside of local area for 2 weeks prior to surgery if possible, avoid large crowns, wear masks, + social distancing/hand washing). No known COVID-19 positive contacts. No current COVID-19 related symptoms. Surgeon arranging preop COVID testing (d/t travel issues, patient states surgeon is coordinating with patient regarding exact timing/location of COVID testing). Awaiting results. Chart Review Chart Review: Acceptable Risk for Surgery and Patient seen in Pre Admission Testing Teaching & Discussion Pre-Anesthesia Teaching/Discussion Notes: Instructed NPO after midnight before surgery,except medications with 15 cc of water. Medication instructions provided according to the PAT guidelines. History Surgery Operation Date: 06/11/20 10:00 Proposed Procedures p Left Total Knee Arthroplasty - Andrade Poole, Height/Weight Height: 5 ft 5 in Weight: 77.1 kg Allergies Allergy/AdvReac Type Severity Reaction Status Date / Time No Known Allergies Allergy Verified 05/03/20 13:17 Medications Home Medications Medication Instructions Recorded Confirmed Last Taken oogrioo-fyofwkinhl-NTH-caffeine 30 1 cap PO Q6H PRN #30 cap 06/11/19 05/03/20 Unknown mg-50 mg-325 mg-40 mg capsule aspirin 81 mg tablet,delayed 81 mg PO PM tab 08/28/19 05/03/20 Unknown release levothyroxine 100 mcg capsule 100 mcg PO QAM 08/28/19 05/03/20 Unknown nitroglycerin 0.4 mg sublingual 0.4 mg SL Q5M PRN tab 08/28/19 05/03/20 Unknown tablet multivitamin 1 tab PO PM 11/11/19 05/03/20 Unknown amlodipine 10 mg PO PM 05/03/20 05/03/20 Unknown ascorbic acid (vitamin C) [Vitamin 500 mg PO PM 05/03/20 05/03/20 Unknown C] calcium polycarbophil [Fiber-Tabs] 1,250 mg PO QAM 05/03/20 05/03/20 Unknown cyanocobalamin (vitamin B-12) 1,000 mcg PO 3XWK 05/03/20 05/03/20 Unknown fluocinolone-hydroq.-tretinoin 1 appln TOP HS PRN 05/03/20 05/03/20 Unknown [Tri-Della] potassium chloride [Klor-Con 10] 10 meq PO PM 05/03/20 05/03/20 Unknown oxycodone-acetaminophen 5 mg-325 1 tab PO Q6H PRN #30 tab 05/10/20 05/10/20 Unknown mg tablet Past Medical History Medical History (Updated 05/10/20 @ 14:45 by Florinda Escobedo) Anemia Anxiety Atrophic gastritis Chronic migraine Constipation Coronary artery vasospasm Diverticular disease Fibromuscular dysplasia hx, reason for renal angioplasty (approximately 2013) 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 Hypothyroidism Insomnia Neuroendocrine carcinoma of stomach 2018 cath with "20% proximal RCA lesion in a dominant right coronary artery; mild calcification of the proximal LAD" Nonobstructive atherosclerosis of coronary artery cardiac cath 2018 ([place]) Papillary thyroid carcinoma Past Family History Family History Family/Other Alcohol abuse Anxiety Cardiac disorder Depression Drug abuse Ovarian cancer Myocardial infarction Other Cancer Colorectal cancer Denies family history of Prostate cancer Breast cancer Past Surgical History Surgical History H/O abdominoplasty H/O breast biopsy right H/O section X3 H/O dilation and curettage H/O laparoscopic partial gastrectomy H/O total knee replacement (~11/2018) RIGHT History of arthroscopy LEFT KNEE History of cardiac cath 2018> DUE TO C.P> NO STENTS History of cataract surgery BILAT History of colonoscopy History of tooth extraction History of tubal ligation Hx of thyroidectomy S/P cholecystectomy S/P partial gastrectomy 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 DEVON MACHADO YEARLY Social History Smoking Status: Never smoker Smoking cigarettes per day: 20 Do You Dip or Chew Tobacco: No Smoking End Date: 30 YRS AGO Hx Alcohol Use: Yes Alcohol type: wine alcohol intake frequency: a few times a month Hx Substance Use: No substance use type: does not use Review of Systems Patient denies chest pain, shortness of breath, dyspnea on exertion, joint pain, reflux, cough, wheezing, palpitations. Physical Exam Vital Signs VITALS BP 132/58 P 57 TEMP 98.2 SP02 98%RA RESP 18 PHYSICAL Full neck and c-spine range of motion. Full TMJ range of motion. TMD 3 finger breaths Mallampati Score 3 Dentition: full plate on upper, partial on lower Lungs: clear throughout to auscultation Cardiac: regular rate and rhythm, no murmurs noted Spine: normal Carotid arteries: negative bruit Extremities: no edema Testing Laboratory Results 05/10/20 12:24 05/10/20 12:24 PT 11.1 Seconds (9.0-12.0) 05/10/20 12:24 INR 1.1 (0.9-1.1) 05/10/20 12:24 APTT 28.6 Seconds (21.0-31.0) 05/10/20 12:24 Blood Type A Positive 05/10/20 12:24 Antibody Screen NEGATIVE 05/10/20 12:24 Electrocardiogram Date: 05/10/20 SB at 55bpm. Chest X-Ray Date: 05/10/20 FINDINGS: Lung volumes are normal. Minimal left basilar opacity favors atelectasis. There is no pneumothorax or pleural effusion. Cardiac size is normal. Mediastinal contours are normal. There is no evidence for pulmonary matthew a. Incidental note is made of cholecystectomy clips. IMPRESSION: No acute cardiopulmonary findings. Echocardiogram Date: 04/21/17 EF 65-70%. No RWMA. Grade I DD. Mild MA. Cardiac Catheterization Date: 12/13/17 "20% proximal RCA lesion in a dominant right coronary artery; mild calcification of the proximal LAD" per cardiology office visit note from 06/2019. Done in [place]. Attempts to obtain official report unsuccessful.
[2020-05-10 12:52] LABS: Basophils # (auto) 0.03 K/uL (0-0.2); Basophils % (auto) 0.6 %; Eosinophils # (auto) 0.16 K/uL (0-0.5); Eosinophils % (auto) 3.4 %; Hematocrit (blood only) 39.3 % (37-47); Hemoglobin 13.2 g/dL (12.0-16.0); Immature Granulocytes # (auto) 0.01 K/uL (0.00-0.02); Immature Granulocytes % (auto) 0.2 %; Lymphocytes # (auto) 1.73 K/uL (1.2-3.4); Lymphocytes % (auto) 37.3 %; Mean Corpuscular Hgb Conc 33.6 g/dL (32-36); Mean Corpuscular Volume 95.4 fL (80-100); Mean Platelet Volume 10.2 fL (7.4-10.4); Monocytes # (auto) 0.36 K/uL (0.11-0.59); Monocytes % (auto) 7.8 %; Neutrophils # (auto) 2.35 K/uL (1.4-6.5); Neutrophils % (auto) 50.7 %; Platelet Count 306 K/uL (130-400); RDW Coefficient of Variation 12.7 % (11.5-14.5); Red Blood Count 4.12 M/uL (4.2-5.4); White Blood Count 4.64 K/uL (4.8-10.8)
--- NOTE | 2020-05-10 12:52 | XRay Report ---
XR chest Pre-admission PA/Lat CLINICAL HISTORY: Preoperative evaluation. COMPARISON STUDY: Chest CT April 23, 2018. Chest radiograph November 2018. FINDINGS: Lung volumes are normal. Minimal left basilar opacity favors atelectasis. There is no pneum othorax or pleural effusion. Cardiac size is normal. Mediastinal contours are normal. There is no kay dence for pulmonary edema. Incidental note is made of cholecystectomy clips. IMPRESSION: No acute cardiopulmonary findings. ACT 112: Negative or not required by law. Electronically signed by: Christian Ac M.D. 05/10/2020 12:51 PM
[2020-05-10 13:10] LABS: INR 1.1 (0.9-1.1); Partial Thromboplastin Time 28.6 Seconds (21.0-31.0); Prothrombin Time 11.1 Seconds (9.0-12.0)
--- NOTE | 2020-05-10 14:02 | Electrocardiogram Report ---
Test Reason : Blood Pressure : / mmHG Vent. Rate : 055 BPM Atrial Rate : 055 BPM P-R Int : 140 ms QRS Dur : 086 ms QT Int : 468 ms P-R-T Axes : 069 054 047 degrees QTc Int : 447 ms Sinus bradycardia Otherwise normal ECG When compared with ECG of 22-APR-2017 11:17, No significant change was found Confirmed by Adalberto Islas ([id number]) on 05/10/2020 2:01:49 PM Referred By: Andrade Poole Confirmed By:Adalberto Islas
[2020-05-10 15:31] LABS: BUN Creatinine Ratio 14.9 (10-20); Calcium 8.8 mg/dl (8.5-10.1); Creatinine Clr Calc Pharmacy 86.2 ml/min; Est GFR (African American) 106.5; Est GFR (Non-African American) 91.9; Potassium 3.8 mmol/L (3.5-5.1)
--- NOTE | 2020-06-10 06:48 | History & Physical Report ---
Date of Service June 10, 2020 Assessment & Plan (1) Osteoarthritis, knee: We will proceed with a left total knee arthroplasty. Postoperatively she will be started on aspirin for DVT prophylaxis and kept overnight in the hospital for postoperative medical management. She plans to use outpatient physical therapy upon discharge. Present on Admission?: Yes History of Present Illness Chief Complaint: Primary osteoarthritis of the left knee Primary Care Provider: Jojo Ac MD Kiara is a pleasant 69-year-old female who is been dealing with chronic increasing left knee pain. She is a history of a right knee replacement done at another institution. She did not do well with that. She had stomach cancer right after the knee replacement and was unable to do physical therapy. Unfortunately, she is now dealing with a lot of left knee pain. X-rays and clinical examination are diagnostic for advanced osteoarthritis of the left knee. After failing conservative treatment, she has elected proceed with a left total knee arthroplasty. Allergies Allergy/AdvReac Type Severity Reaction Status Date / Time No Known Allergies Allergy Verified 05/03/20 13:17 Home Medications Home Medications Medication Instructions Recorded Confirmed Type wojwxbx-xkxitewdad-KJD-caffeine 30 1 cap PO Q6H PRN #30 cap 06/11/19 05/03/20 Rx mg-50 mg-325 mg-40 mg capsule aspirin 81 mg tablet,delayed 81 mg PO PM tab 08/28/19 05/03/20 History release levothyroxine 100 mcg capsule 100 mcg PO QAM 08/28/19 05/03/20 History nitroglycerin 0.4 mg sublingual 0.4 mg SL Q5M PRN tab 08/28/19 05/03/20 History tablet multivitamin 1 tab PO PM 11/11/19 05/03/20 History amlodipine 10 mg PO PM 05/03/20 05/03/20 History ascorbic acid (vitamin C) [Vitamin 500 mg PO PM 05/03/20 05/03/20 History C] calcium polycarbophil [Fiber-Tabs] 1,250 mg PO QAM 05/03/20 05/03/20 History cyanocobalamin (vitamin B-12) 1,000 mcg PO 3XWK 05/03/20 05/03/20 History fluocinolone-hydroq.-tretinoin 1 appln TOP HS PRN 05/03/20 05/03/20 History [Tri-Della] potassium chloride [Klor-Con 10] 10 meq PO PM 05/03/20 05/03/20 History oxycodone-acetaminophen 5 mg-325 1 tab PO Q6H PRN #30 tab 05/10/20 05/10/20 Rx mg tablet Past Med/Surg History Medical History Anemia Anxiety Atrophic gastritis Chronic migraine Constipation Coronary artery vasospasm Diverticular disease Fibromuscular dysplasia hx, reason for renal angioplasty (approximately 2013) 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 Hypothyroidism Insomnia Neuroendocrine carcinoma of stomach Nonobstructive atherosclerosis of coronary artery cardiac cath 2018 ([place]) 2018 cath with "20% proximal RCA lesion in a dominant right coronary artery; mild calcification of the proximal LAD" Papillary thyroid carcinoma Surgical History H/O abdominoplasty H/O breast biopsy right H/O section X3 H/O dilation and curettage H/O laparoscopic partial gastrectomy H/O total knee replacement (~11/2018) RIGHT History of arthroscopy LEFT KNEE History of cardiac cath 2018> DUE TO C.P> NO STENTS History of cataract surgery BILAT History of colonoscopy History of tooth extraction History of tubal ligation Hx of thyroidectomy S/P cholecystectomy S/P partial gastrectomy 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 DEVON MACHADO YEARLY Family History Family/Other Alcohol abuse Anxiety Cardiac disorder Depression Drug abuse Ovarian cancer Myocardial infarction Other Cancer Colorectal cancer Denies family history of Prostate cancer Breast cancer Social History Smoking Status: Never smoker packs per day: 1; Cigarettes Per Day: 20; Second Hand Exposure: No; Hx Alcohol Use: Yes Alcohol type: wine Hx Substance Use: No Preferred Language: Maltese Communication Ability: Effective Visual Impairment: No Limitations Hearing Ability: Normal Surveillance Director Required: No Beliefs That Will Affect Care: None marital status: Current Living Situation: Spouse current occupational status: retired Feels Safe at Home: Yes Childhood Exposure to Second-Hand Smoke: No Dental Care, Regularly: Yes Physical Activity Frequency: Does not Exercise Review of Systems Review of Systems: All systems reviewed & are unremarkable except as noted in HPI & below Physical Exam Constitutional: WD/WN, vitals as above Eyes: PERRL, conjunctivae normal, anicteric sclerae ENMT: external ear and nose normal, oropharynx normal Neck: trachea midline, no thyromegaly Respiratory: normal respiratory effort Cardiovascular: RRR, no murmur, no edema Gastrointestinal (Abdomen): normal bowel sounds, soft, nontender, no hepatosplenomegaly Musculoskeletal: On physical examination of the left knee there is a trace effusion. There is near full range of motion and no evidence of instability. There is significant tenderness palpation along the medial and lateral joint lines and over the distal femoral condyles. Psychiatric: A+Ox3, euthymic affect Results & Data Results & Data ([facility]) Diagnostic Findings Radiographs of the left knee demonstrate advanced osteoarthritis with joint space narrowing osteophyte formation and ytnx-uf-bodl articulation. PG Care Time/CCT Total # of Minutes Spent Total Time Spent with Patient: Total time spent is greater than 50% in coordination of care (as documented) at patient's floor/unit and/or counseling patient: Coding Level of Care Code 10010 Initial Inpt Care Lvl 2 Diagnoses Osteoarthritis, knee M17.10
[2020-06-11] MEDS ORDERED: ACETAMINOPHEN 500 MG TAB ONE (05:42)
[2020-06-11] MEDS ORDERED: LR 60ML/HR IV SCH (06:00)
[2020-06-11] MEDS ORDERED: LR 500ML BOLUS, THEN 15ML/HR IV SCH (06:00)
[2020-06-11] MEDS ORDERED: TRANEXAMIC ACID 1,000 MG **IV Pre-op IV SCH (06:00)
[2020-06-11] MEDS ORDERED: dexAMETHasone 4 MG TAB PO SCH (06:00)
[2020-06-11] MEDS ORDERED: FAMOTIDINE 20 MG TAB PO SCH (06:00)
[2020-06-11] MEDS ORDERED: GABAPENTIN 300 MG CAP PO SCH (06:00)
[2020-06-11] MEDS ORDERED: ROPIVACAINE 0.5% HCL/PF 150 MG, BUPIVACAINE 0.5% MPF 30 ML, EPINEPHrine 30MG/30ML (OR U... INSTIL SCH (06:00)
[2020-06-11] MEDS ORDERED: CEFAZOLIN 1000MG 1,000 MG/7.5 ML SYR IV SCH (06:00)
[2020-06-11] MEDS ORDERED: TRANEXAMIC ACID 1,000 MG **IV Intra-op IV SCH (06:05)
[2020-06-11] MEDS ORDERED: BUPIVACAINE/EPINEPHRINE 0.25% 1:200,000 30 ML VIAL ONE (06:26)
[2020-06-11] MEDS ORDERED: DEXAMETHASONE SOD INJ 4 MG/ML VIAL ONE ×3 (06:26→08:00)
[2020-06-11] MEDS ORDERED: BUPIVACAINE 0.5 % 5 MG/1 ML PF 10ML VIAL ONE (06:27)
[2020-06-11] MEDS ORDERED: LIDOCAINE HCL 2% 2 ML VIAL/AMP(20MG/ML) INFIL ONE (06:29)
[2020-06-11] MEDS ORDERED: ONDANSETRON INJ 2 MG/ML 2 ML VIAL ONE (06:29)
[2020-06-11] MEDS ORDERED: MIDAZOLAM HCL 1 MG/ML 2ML VIAL ONE (06:30)
[2020-06-11] MEDS ORDERED: fentaNYL citrate 100 MCG/2 ML VIAL ONE (06:30)
[2020-06-11] MEDS ORDERED: PROPOFOL IV EMULSION 10 MG/ML 20 ML VIAL IV ONE (06:30)
[2020-06-11] MEDS ORDERED: ORTHO JOINT ANESTHETIC ONE (06:34)
[2020-06-11] MEDS ORDERED: fentaNYL citrate 100 MCG/2 ML VIAL IV PRN (06:40)
[2020-06-11] MEDS ORDERED: ePHEDrine sulfate 50 MG/ML AMP IV PRN (06:40)
[2020-06-11] MEDS ORDERED: ONDANSETRON INJ 2 MG/ML 2 ML VIAL IV PRN ×2 (06:40→09:39)
[2020-06-11] MEDS ORDERED: ATROPINE SULFATE 0.1 MG/ML 10ML SYR IV PRN (06:40)
[2020-06-11] MEDS ORDERED: PROMETHAZINE HCL 6.25 MG in SODIUM CHLORIDE 0.9% 50 ML IV PRN (06:40)
--- NOTE | 2020-06-11 07:02 | History & Physical Bridge Note ---
Date of Service June 11, 2020 History & Physical Bridge Note I have examined the patient, reviewed the History & Physical and in the interval since the performance of the History & Physical I have noted the following changes of clinical significance: no changes noted
[2020-06-11] MEDS ORDERED: ePHEDrine sulfate 50 MG/ML AMP ONE (07:40)
--- NOTE | 2020-06-11 08:25 | Operative Report ---
PG Post Operative Report Pre & Post Diagnosis Operation Date: 06/11/20 07:00 Pre-Op Diagnosis: Degenerative Joint Disease, Left Knee Post-Op Diagnosis: Degenerative Joint Disease, Left Knee I identified the patient and participated in the time-out.: Yes Procedure Operation Date: 06/11/20 07:00 Actual Procedures p Left Total Knee Arthroplasty(Left) - Andrade Poole DO Surgeon Andrade Poole DO Baking Powder Mixer Andrade Kim PAC Estimated Blood Loss 20 Findings Consistent with Post-Op Diagnosis Specimens Left femoral and tibial bone Complications none Disposition Disposition: Recovery Room Indications Kiara is a pleasant 69-year-old female who is been complaining of chronic increasing left knee pain. X-rays and clinical examination are diagnostic for advanced osteoarthritis of the left knee. After failing conservative treatment, she elected proceed with a left total knee arthroplasty. Description of Procedure Implants used: I used a Felisa Persona total knee arthroplasty system with a size 9 narrow femur, D tibia, 32 patella, and a size 11 medial congruent polyethylene bearing. All components were cemented in place with Palacos G cement. Kiara arrived [facility] for the above procedure. She was seen in the preoperative holding area and the operative extremity was identified and signed. She was given a preoperative antibiotic, TXA, a spinal anesthetic and an adductor nerve block. She was taken back to the operating room and laid on the table in supine position. She was given basic sedation. The operative knee was then prepped and draped in sterile fashion. A timeout was done, and the patient and the operative extremity was properly identified. A midline incision was made directly over the patella. Dissection was taken down to the extensor mechanism. A subvastus arthrotomy was used. The medial retinaculum was released and the fat pad was mostly excised. The knee was flexed and the ACL, PCL, and meniscus were removed. A drill was sent down the center of the femoral canal followed by an intramedullary hernando. Off that hernando a distal femoral cutting block was placed. 9 mm was resected off the distal femur at 5 of valgus. A posterior referencing AP sizing guide was then placed on the distal femur. The femur measured to be a size 9 narrow. 2 drill holes were placed in 3 of external rotation. A 4-in-1 cutting block was then impacted into place. Anterior, posterior, and chamfer cuts were then made. The proximal tibia was then exposed. An external tibial alignment guide was placed. A tibial cut guide was then anchored in place and the proximal tibia was then resected. The posterior aspect of the knee was then opened up and any additional meniscus fragments and osteophytes were removed. The tibia measured to be a size D. The tibial plate was then placed in the appropriate rotation and the tibia was drilled and punched. Trial components were then placed. I used a size 11 medial congruent polyethylene insert. The knee was brought through a full range of motion and felt to be stable. The peg holes for the femoral component were then drilled. The patella was then everted and 9 mm was resected off the posterior aspect of the patella. The patella measured to be a size 32. 3 peg holes were then drilled. A trial patella was placed. The knee was once again brought through a full range of motion and felt to be stable. Trial components were then removed. The surrounding soft tissues were injected with 100 cc of an orthopedic pain control cocktail. All components were then cemented into place with Palacos G cement. The final polyethylene insert was then snapped into place. Once cement was dry the tourniquet was deflated. Hemostasis was obtained. A dilute betadyne lavage was then done for 3 minutes. The joint was then irrigated with normal saline solution. The subvastus arthrotomy was then closed with #1 Vicryl suture. The skin was closed with 2-0 Vicryl, 3-0V lock suture, and enrique. A Silverlon and a soft compressive dressing were placed. She was then transferred to a hospital bed and taken to the postanesthesia care unit in stable condition. She tolerated the procedure well. Andrade Kim PA-C, was present for the entire procedure. He was critical for patient positioning, prepping, draping, retraction exposure, wound closure and application of sterile dressing. I attest to the content of the Intraoperative Record and any orders documented therein. Any exceptions are noted below.
--- NOTE | 2020-06-11 09:05 | XRay Report ---
XR knee LT 1 or 2V routine CLINICAL HISTORY: Postoperative evaluation. COMPARISON: Knee radiographs February 24, 2020. FINDINGS: Alignment of the total left knee arthroplasty is anatomic. There is no periprosthetic frac ture or unexpected radiopaque foreign body. There are skin enrique. IMPRESSION: Expected findings following total left knee arthroplasty. ACT 112: Negative or not required by law. Electronically signed by: Christian Ac M.D. 06/11/2020 9:03 AM
--- NOTE | 2020-06-11 09:19 | Anesthesiology Progress Note ---
Date of Service June 11, 2020 Anesthesia Post Procedure Vital Signs Vital Signs: Temp Pulse Pulse Resp BP Pulse Ox 06/11/20 09:15 36.6 C 64 14 122/64 96 06/11/20 09:05 63 13 119/55 L 97 06/11/20 08:55 64 14 127/62 94 06/11/20 08:49 36.8 C 78 16 110/64 95 06/11/20 05:52 36.5 C 63 16 177/74 H 98 Transfer of Care Handoff Completed per policy Notes Mental Status: alert / awake / arousable Patient Amnestic to Procedure: Yes Nausea / Vomiting: adequately controlled Pain: adequately controlled Airway Patency, RR, SpO2: stable & adequate BP & HR: stable & adequate Hydration State: stable & adequate Neuraxial Anesthesia: was administered and sensory block is resolving Anesthetic Complications: no major complications apparent and Pt Satisfied with anesthetic care
[2020-06-11] MEDS ORDERED: NALOXONE HCL 0.4 MG/1 ML VIAL/CARP IV PRN (09:39)
[2020-06-11] MEDS ORDERED: bisacodyL 10 MG SUPP PR PRN (09:39)
[2020-06-11] MEDS ORDERED: METOCLOPRAMIDE HCL INJ 5 MG/ML 2 ML VIAL IV PRN (09:39)
[2020-06-11] MEDS ORDERED: NITROGLYCERIN SL 0.4 MG/TAB TAB SL PRN (09:39)
[2020-06-11] MEDS ORDERED: HYDROmorphone INJ 0.5 MG/0.5 ML SYR IV PRN (09:39)
[2020-06-11] MEDS ORDERED: MAGNESIUM HYDROXIDE SUSP 30 ML UDC PO PRN (09:39)
[2020-06-11] MEDS: LEVOTHYROXINE SODIUM 100 MCG TABLET PO SCH (10:37)
[2020-06-11] MEDS: DOCUSATE SODIUM 100 MG CAP PO SCH ×2 (10:41→20:18)
[2020-06-11] MEDS: KETOROLAC TROMETHAMINE 15 MG/ML VIAL IV SCH ×2 (10:41→17:33)
[2020-06-11] MEDS: ASPIRIN 81 MG ECTAB PO SCH ×2 (10:41→20:18)
[2020-06-11] MEDS: MULTIVITAMIN TAB PO SCH (10:41)
[2020-06-11] MEDS: SODIUM CHLORIDE 0.9% 1000ML 1,000 ML IV SCH ×2 (10:43→20:16)
[2020-06-11] MEDS: ACETAMINOPHEN 500 MG TAB PO SCH ×2 (14:04→22:30)
[2020-06-11] MEDS: CEFAZOLIN 2000MG 2,000 MG/15 ML SYR IV SCH ×2 (14:07→22:30)
[2020-06-11] MEDS ORDERED: SENNA 8.6 MG TAB PO SCH (21:00)
[2020-06-11] MEDS ORDERED: AMLODIPINE BESYLATE 5 MG TAB PO SCH (21:00)
[2020-06-11] MEDS ORDERED: POTASSIUM CHLORIDE 10 MEQ TABCR PO SCH (21:00)
[2020-06-12] MEDS: KETOROLAC TROMETHAMINE 15 MG/ML VIAL IV SCH ×3 (00:28→12:20)
[2020-06-12] MEDS: ACETAMINOPHEN 500 MG TAB PO SCH ×2 (06:02→13:16)
[2020-06-12] MEDS: LEVOTHYROXINE SODIUM 100 MCG TABLET PO SCH (06:02)
[2020-06-12 06:07] LABS: Hematocrit (blood only) 34.3 % (37-47); Hemoglobin 11.6 g/dL (12.0-16.0); Mean Corpuscular Hemoglobin 32.7 pg (25-34); Mean Corpuscular Hgb Conc 33.8 g/dL (32-36); Mean Corpuscular Volume 96.6 fL (80-100); Mean Platelet Volume 10.5 fL (7.4-10.4); Platelet Count 272 K/uL (130-400); RDW Coefficient of Variation 12.8 % (11.5-14.5); RDW Standard Deviation 45.1 fL (36.4-46.3); Red Blood Count 3.55 M/uL (4.2-5.4); White Blood Count 14.94 K/uL (4.8-10.8)
[2020-06-12 06:38] LABS: BUN Creatinine Ratio 26.5 (10-20); Calcium 8.6 mg/dl (8.5-10.1); Creatinine Clr Calc Pharmacy 86.8 ml/min; Est GFR (African American) 105.4
--- NOTE | 2020-06-12 07:45 | Orthopedic Progress Note ---
Date of Service June 12, 2020 Assessment & Plan (1) Status post left knee replacement: Overall she is doing very well. She is not have any pain in the left knee but the nerve block is still working. She will be seen by physical therapy today for ambulation and range of motion exercises. She is interested in going home today, but I want a wait until the nerve block wears off and she feels stable on that left knee. If she feels stable later this afternoon then she can be discharged home. She is on aspirin for DVT prophylaxis. She will follow-up with orthopedics in 2 weeks. Present on Admission?: Yes Admission and Anticipated Discharge Date Admission Date: June 11, 2020 Gabby Craig was seen and examined at bedside this morning. Overall she is doing very well. She is not having much pain in the left knee. The nerve block is still working. She still has tingling in her left leg and she is unable to dorsiflex her ankle. She has been up to the bedside commode but is not been ambulating yet. Physical Exam Musculoskeletal: On physical examination of the left knee, the dressing is clean and dry. Her legs out in full extension. She is unable to dorsiflex her ankle and she has numbness. The nerve block is still working. Results & Data ([facility]) Vital Signs (Past 12 Hours) Vital Signs Temp Pulse Resp BP Pulse Ox 06/12/20 02:39 36.5 C 64 16 101/63 97 06/11/20 23:00 36.4 C L 60 16 114/57 L 95 Laboratory Results H & H 05/10/20 06/12/20 Range/Units 12:24 05:46 Hgb 13.2 11.6 L (12.0-16.0) g/dL Hct 39.3 34.3 L (37-47) % Coagulation 05/10/20 Range/Units 12:24 INR 1.1 (0.9-1.1) Diagnostic Findings Postoperative x-rays of the left knee show the prosthesis to be in anatomic alignment without any evidence of fracture, dislocation, or loosening. PG Care Time/CCT Total # of Minutes Spent Total Time Spent with Patient: Total time spent is greater than 50% in coordination of care (as documented) at patient's floor/unit and/or counseling patient: Coding Level of Care Code None Diagnoses Status post left knee replacement Z96.652
--- NOTE | 2020-06-12 07:46 | Discharge Summary ---
Date of Service June 12, 2020 Admission HPI Per Admitting Provider Kiara is a pleasant 69-year-old female who is been dealing with chronic increasing left knee pain. She is a history of a right knee replacement done at another institution. She did not do well with that. She had stomach cancer right after the knee replacement and was unable to do physical therapy. Unfortunately, she is now dealing with a lot of left knee pain. X-rays and clinical examination are diagnostic for advanced osteoarthritis of the left knee. After failing conservative treatment, she has elected proceed with a left total knee arthroplasty. Principal Diagnosis Left knee replacement Discharge Data Allergies Allergy/AdvReac Type Severity Reaction Status Date / Time No Known Allergies Allergy Verified 06/11/20 05:44 Consultations 06/11/20 09:39 Consult Case Management - Discharge Planning Routine Procedures Performed Operation Date: 06/11/20 07:00 Actual Procedures p Left Total Knee Arthroplasty(Left) - Andrade Poole DO Ordered Studies 06/11/20 05:00 US - OR guided needle placemen Routine Hospital Course (1) Status post left knee replacement: On June 11, 2020 Kiara arrived at [facility] and underwent a left knee replacement without complication. She had a spinal anesthetic. Postoperatively she was started on aspirin for DVT prophylaxis and transferred to the general orthopedic floors. Her hospital course was uneventful. On post op day #1 her H&H was stable and her pain was well controlled. She was able to participate well with physical therapy doing ambulation and range of motion exercises. She was then discharged home. She will follow-up with orthopedics in 2 weeks. Total Time Total Time Spent Total Time Spent (In Minutes): 20 Discharge Plan Discharge Items Patient Disposition: Home - Home Health Services Reason For Visit: Degenerative Joint Disease, Left Knee Discharge Diagnosis: Left knee replacement Activity: As commented below Non-emergency contact: Surgeon Call non-emergency contact if: your wound has increased redness and your wound has increased drainage Follow-up/Referrals: Jojo Ac MD [Primary Care Provider] - Diet: Regular Addtl Attending Provider Instructions: Activity and Therapy Recommendations: * If you are using [facility] then therapy will be provided at your home until they feel you have accomplished all of your goals. * If you are using [facility] then Physical Therapy will be provided until they feel you are ready to start Outpatient Physical Therapy. * If you are not using home therapy then Outpatient Physical Therapy should start about 3-5 days from your day of surgery. Therapy will last about 6-10 weeks * It is important not to put a pillow under your knee when you are relaxing or sleeping. It is just as important to make sure you are getting your knee perfectly straight as it is to regain your knee bend. * You were shown a series of exercises in the hospital. Do these exercises three times each day including the exercises you were shown in physical therapy. * Get up and walk several times each day. For the first four weeks, try not to stand or walk for more than one hour at a time. If you do stand or walk for more than one hour, you will not hurt anything, but your leg will likely swell. * As you feel comfortable, you may change from the walker or crutches to a cane and then to independent walking. Medications: * Narcotic You will likely be sent home from the hospital with a prescription for the narcotic pain medication that worked best throughout your stay. * Aspirin Most patients will be required to take Aspirin 81mg twice a day for 6 weeks after surgery. This is obtained [id number] and a prescription is not necessary. * Other medications may be prescribed for specific circumstances. If you have any questions, please call the office at . * Resume previous home medications unless otherwise instructed TEDs/Elastic Stockings: The white elastic stockings help limit swelling and prevent blood clots from forming in your legs.~ The more you wear them, the more they work. Wear them for six weeks. Dressing Care: Leave the Silverlon dressing in place for 7 days. After 7 days you may remove the dressing. If the incision is not draining then you may leave the enrique open to air. If there is a little bit of drainage or if the enrique are getting stuck on your clothing then cover the incision with a dry dressing. The enrique will be removed at your 2 week follow-up appointment. Showering: You may shower with the Silverlon dressing in place. Do not let the shower spray hit the dressing directly. Pat the Silverlon dressing dry. If the dressing becomes wet underneath, then simply remove the dressing. Keep the incision dry until you are 7 days out from the day of surgery. After 7 days you may remove the Silverlon dressing and shower with the enrique exposed. Let soapy water run over the enrique and pat them dry. Do not scrub or soak the incision. Things To Watch For: * Drainage from the incision site that occurs more than one week after your surgery. * Increased redness at the incision site. * Fever above 102 degrees Fahrenheit. * Unusual chest pain or shortness of breath. * Call [facility] at with any of the above problems Follow-Up Visit: Follow-up with Dr. Poole's PA (Andrade Kim) 2-3 weeks after your day of surgery. He will remove your enrique and answer any questions. If you have any additional questions or concerns, Dr Poole is usually in the office at the same time and will be available An appointment was probably scheduled when you signed-up for surgery in the office. If you have any questions call Office Instructions: More detailed instructions as well as Frequently Asked Questions were provided in a folder by our office when you signed-up for surgery. Please review these instructions when you get home. If you have any further questions or concerns, please feel free to call the office at [phone] Pending Studies at Discharge: No Stand-Alone Forms: My [facility], Smoking Cessation Medications and DC Order Prescriptions: Continued [id number] [Ascomp with Codeine] [id number] mg capsule 1 cap PO Q6H PRN (Reason: headache) Qty: 30 RF: 1 levothyroxine 100 mcg capsule 100 mcg PO QAM RF: 0 nitroglycerin 0.4 mg tablet, sublingual 0.4 mg SL Q5M PRN (Reason: angina) RF: 0 multivitamin Tablet 1 tab PO PM RF: 0 oxycodone-acetaminophen [Percocet] 5-325 mg tablet 1 tab PO Q6H PRN (Reason: pain) Qty: 30 RF: 0 ascorbic acid (vitamin C) [Vitamin C] 500 mg Tablet 500 mg PO PM RF: 0 cyanocobalamin (vitamin B-12) 1,000 mcg tablet 1,000 mcg PO 3XWK RF: 0 potassium chloride [Klor-Con 10] 10 mEq tablet extended release 10 meq PO PM RF: 0 amlodipine 10 mg tablet 10 mg PO PM RF: 0 calcium polycarbophil [Fiber-Tabs] 625 mg Tablet 1,250 mg PO QAM RF: 0 Changed aspirin 81 mg tablet,delayed release (DR/EC) 81 mg PO BID 42 Days Qty: 0 RF: 0 Discharge Orders: Discharge Order (Routine); Ordered 06/12/20 Ordered By: Andrade Poole Admission Data Admit Date/Time: 06/11/20 08:49 Attending Provider: Andrade Poole Admit Provider: Andrade Poole Primary Care Provider: Jojo Ac Coding Level of Care Code D/C Day Management <30 mins Diagnoses Status post left knee replacement Z96.652
[2020-06-12] MEDS: MULTIVITAMIN TAB PO SCH (07:59)
[2020-06-12] MEDS: DOCUSATE SODIUM 100 MG CAP PO SCH (07:59)
[2020-06-12] MEDS: ASPIRIN 81 MG ECTAB PO SCH (07:59)
[2020-06-12] MEDS ORDERED: dexAMETHasone 4 MG TAB PO SCH (08:00)
[2020-06-12] MEDS: OXYCODONE HCL IR 5 MG TAB (IMMEDIATE RELEASE) PO PRN ×2 (12:19→13:15)
== END 2020-06-12 13:55 | disposition home health service (06) ==
LOC: 3E 05:27 → ASU 05:27